=== PATIENT | female | born 1995 | race Caucasian/White ===

== ENCOUNTER 2017-03-09 12:59 | Emergency (ER) | payer OTHER ==
[2017-03-09] MEDS ORDERED: KETOROLAC 30 MG/ML 1 ML VIAL IVP STA (13:31)
[2017-03-09] MEDS ORDERED: ONDANSETRON 4 MG/2 ML VIAL IVP STA (13:31)
[2017-03-09] MEDS ORDERED: SODIUM CHLORIDE 0.9% 1,000 ML IV STA (13:31)
[2017-03-09] MEDS ORDERED: cloNIDine 0.1 MG/24HR PATCH 1 PATCH PATCH TRANSDERM STA (13:31)
--- NOTE | 2017-03-09 13:58 | ED ---
General Adult HPI - General Chief complaint: Recheck/Abnormal Lab/Rx Stated complaint: opiate withdrawal Time Seen by Provider: 03/09/17 13:23 Source: patient, RN notes reviewed Mode of arrival: ambulatory Limitations: no limitations - History of Present Illness Initial comments: 21-year-old female presents for opiate withdrawal. Patient states that she abuses heroin when but other medications for the last 2-3 weeks. Patient states she's been off these meds for about 3 days and she continues to have nausea vomiting abdominal cramping. Patient states that she just needs something to help keep something down she's not eating or drinking much last few days. Patient denies any fever or chills with this. Patient states just needs medication to help her deal with the symptoms. Patient denies any suicidal or homicidal ideation at this time. Patient denies any recent fever, chills, shortness of breath, chest pain, back pain, abdominal pain, nausea vomiting, numbness or tingling, dysuria or hematuria, constipation or diarrhea, headaches or visual changes, or any other current symptoms. - Related Data Previous Rx's Medication Instructions Recorded Ondansetron Odt [Zofran ODT] 4 mg PO Q8HR PRN #20 tab 03/09/17 Allergies Allergy/AdvReac Type Severity Reaction Status Date / Time No Known Allergies Allergy Verified 03/09/17 13:35 Review of Systems ROS Statement: Those systems with pertinent positive or pertinent negative responses have been documented in the HPI. ROS Other: All systems not noted in ROS Statement are negative. Past Medical History Past Medical History: No Reported History History of Any Multi-Drug Resistant Organisms: None Reported Past Surgical History: No Surgical Hx Reported Past Psychological History: No Psychological Hx Reported Smoking Status: Current every day smoker Past Alcohol Use History: None Reported Past Drug Use History: Heroin, Marijuana, Opiates General Exam Limitations: no limitations General appearance: alert, in no apparent distress Head exam: Present: atraumatic, normocephalic, normal inspection ENT exam: Present: normal exam, mucous membranes moist Neck exam: Present: normal inspection. Absent: tenderness, meningismus, lymphadenopathy Respiratory exam: Present: normal lung sounds bilaterally. Absent: respiratory distress, wheezes, rales, rhonchi, stridor Cardiovascular Exam: Present: normal rhythm, tachycardia, normal heart sounds GI/Abdominal exam: Present: soft, normal bowel sounds. Absent: distended, tenderness, guarding, rebound, rigid Neurological exam: Present: alert, oriented X3, CN II-XII intact. Absent: motor sensory deficit Psychiatric exam: Present: normal affect, normal mood Skin exam: Present: warm, dry, intact, normal color. Absent: rash Course Vital Signs 03/09/17 13:14 Temperature 98.1 F Pulse Rate 122 H Respiratory 20 Rate O2 Sat by Pulse 100 Oximetry Medical Decision Making - Medical Decision Making 21-year-old female presents emergency Department chief complaint of opiate withdrawal. At this time we will give the patient Zofran and clonidine patch. We did discuss follow-up return parameters. Patient is in agreement with plan and all questions have been answered. She will be discharged. Disposition Clinical Impression: Opiate withdrawal Disposition: HOME SELF-CARE Condition: Stable Instructions: Opioid Withdrawal (ED) Additional Instructions: Please use medication as discussed. Please follow up with family doctor if symptoms have not improved over the next two days. Please return to the emergency room if your symptoms increase or worsen or for any other concerns. Prescriptions: Ondansetron Odt [Zofran ODT] 4 mg PO Q8HR PRN #20 tab PRN Reason: Nausea Referrals: Tanisha José MD [STAFF PHYSICIAN] - 1-2 days Time of Disposition: 13:58
[2017-03-09 14:43] VITALS: BP 109/61; PULSE 80; RESP 16; TEMP 99.2
== END 2017-03-09 15:17 | disposition home or self-care (01) ==
LOC: EC 12:59
DX: F11.23 Opioid dependence with withdrawal (principal); R11.2 Nausea with vomiting, unspecified; R10.9 Unspecified abdominal pain; R00.0 Tachycardia, unspecified; F17.200 Nicotine dependence, unspecified, uncomplicated
CPT/HCPCS: 96374; 96375; 96361; 99283; J2405; J1885

== ENCOUNTER 2017-11-10 02:18 | Emergency (ER) | payer OTHER ==
[2017-11-10 02:25] VITALS: RESP 18
[2017-11-10] MEDS ORDERED: IBUPROFEN 600 MG TAB PO STA (02:40)
[2017-11-10] MEDS ORDERED: ACETAMINOPHEN TAB 325 MG TAB PO STA (02:40)
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
[2017-11-10 04:11] VITALS: BP 105/56; PULSE 82; TEMP 98.9
== END 2017-11-10 04:09 | disposition home or self-care (01) ==
LOC: EC 02:18
DX: S00.03XA Contusion of scalp, initial encounter (principal); F17.200 Nicotine dependence, unspecified, uncomplicated; Z86.14 Personal history of Methicillin resistant Staphylococcus aureus infection; Y04.2XXA Assault by strike against or bumped into by another person, initial encounter; Y92.009 Unspecified place in unspecified non-institutional (private) residence as the place of occurrence of the external cause
CPT/HCPCS: 70450; 71046; 81025; 99284

== ENCOUNTER 2018-01-14 17:14 | Emergency (ER) | payer OTHER ==
[2018-01-14] MEDS ORDERED: SODIUM CHLORIDE 0.9% 1,000 ML IV STA (17:51)
[2018-01-14] MEDS ORDERED: ONDANSETRON 4 MG/2 ML VIAL IVP STA (17:51)
[2018-01-14] MEDS ORDERED: diphenhydrAMINE 50 MG/ML 1 ML VIAL IVP STA (17:53)
--- NOTE | 2018-01-14 17:59 | ED ---
Recheck HPI - General Chief Complaint: Recheck/Abnormal Lab/Rx Stated Complaint: Withdrawals Time Seen by Provider: 01/14/18 17:48 Source: patient, RN notes reviewed Mode of arrival: ambulatory Limitations: no limitations - History of Present Illness Initial Comments: This is a 22-year-old female who presents to the emergency department with chief complaint of withdrawals. Patient states that she has been taking Suboxone but missed her doctor's appointment this past week so did not receive a refill. She states she has been out of Suboxone for the past 3 days. She reports fatigue, nausea and vomiting, body aches and feeling dehydrated. She denies any chest pain or shortness of breath, fevers or chills, abdominal pain, dysuria or hematuria. - Related Data Previous Rx's Medication Instructions Recorded Ondansetron Odt [Zofran Odt] 4 mg PO Q8HR PRN #15 tab 01/14/18 Allergies Allergy/AdvReac Type Severity Reaction Status Date / Time No Known Allergies Allergy Verified 01/14/18 17:41 Review of Systems ROS Statement: Those systems with pertinent positive or pertinent negative responses have been documented in the HPI. ROS Other: All systems not noted in ROS Statement are negative. 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 HEENT: Head atraumatic, normocephalic. Pupils are equal, round and reactive to light. Extraocular movements intact. Oropharynx moist without erythema or exudate. Neck: Supple. Normal ROM. Cardiovascular: Regular rate and rhythm. No murmurs, rubs or gallops. Chest symmetrical. Respiratory: Lungs clear to auscultation bilaterally. No wheezes, rales or rhonchi. Normal respiratory effort with no use of accessory muscles. Musculoskeletal: Normal ROM, no tenderness bilateral upper and lower extremities. Ambulating normally. Skin: [place], warm and dry without rashes or lesions. Neurological: Alert and oriented x3. CN II-XII grossly intact. Speech is fluent and answers are appropriate. No focal neuro deficits. Limitations: no limitations Course Vital Signs 01/14/18 17:37 Temperature 98.3 F Pulse Rate 87 Respiratory 18 Rate Blood Pressure 131/71 O2 Sat by Pulse 99 Oximetry Medical Decision Making - Medical Decision Making This is a 22-year-old female who presents to the emergency department with chief complaint of withdrawal symptoms. Patient states that she was prescribed Suboxone, however has been out of it for 3 days. She did not receive a refill because she missed her doctor's appointment. On presentation to the ER, patient 's vital signs were stable. She was given an IV normal saline, Zofran and Benadryl. She'll be discharged home with a prescription for Zofran. Recommended following up with primary care provider. She is in agreement with plan and voices understanding. All questions were answered. She is in no acute distress. Disposition Clinical Impression: Drug withdrawal Disposition: HOME SELF-CARE Condition: Good Instructions: Opioid Withdrawal (ED) Additional Instructions: Please take medications as prescribed. Please follow up with primary care provider within 1-2 days. Return to emergency department if symptoms should worsen or any concerns arise. Prescriptions: Ondansetron Odt [Zofran Odt] 4 mg PO Q8HR PRN #15 tab PRN Reason: Nausea Is patient prescribed a controlled substance at d/c from ED?: No Referrals: None,Stated [Primary Care Provider] - 1-2 days Time of Disposition: 18:45
[2018-01-14] MEDS ORDERED: ONDANSETRON 4 MG ODT STARTER PACK 2 TAB BTL PO STA (18:44)
[2018-01-14 19:22] VITALS: BP 124/77; PULSE 65; RESP 15; TEMP 99.5
== END 2018-01-14 20:03 | disposition home or self-care (01) ==
LOC: EC 17:14
DX: F11.23 Opioid dependence with withdrawal (principal); R11.2 Nausea with vomiting, unspecified; R53.83 Other fatigue; R52 Pain, unspecified; T40.2X5A Adverse effect of other opioids, initial encounter; F17.200 Nicotine dependence, unspecified, uncomplicated; Z86.14 Personal history of Methicillin resistant Staphylococcus aureus infection
CPT/HCPCS: 99284; 96374; 96375; 96361; J1200; J2405; S0119

== ENCOUNTER → 2019-03-02 | Outpatient (CLI) | payer OTHER | END | disposition home or self-care (01) | LOC: LABWHC1 07:21 | PROVIDERS: ATTEND Internal Medicine | DX: Z53.9 Procedure and treatment not carried out, unspecified reason (principal) ==

== ENCOUNTER → 2019-03-02 | Outpatient (CLI) | payer OTHER ==
[2019-03-02 07:49] LABS: Basophils # (A) 0.1 k/uL (0-0.2); Basophils % (A) 1 %; Eosinophils # (A) 0.2 k/uL (0-0.7); Eosinophils % (A) 3 %; HCT 37.4 % (34.0-46.0); HGB 11.7 gm/dL (11.4-16.0); Hypochromasia Marked; Lymphocytes # (A) 1.7 k/uL (1.0-4.8); Lymphocytes % (A) 25 %; MCH 23.3 pg (25.0-35.0); MCHC 31.4 g/dL (31.0-37.0); MCV 74.3 fL (80.0-100.0); Mean Platelet Volume 6.6; Microcytosis Slight; Monocytes # (A) 0.4 k/uL (0-1.0); Monocytes % (A) 5 %; Neutrophils # (A) 4.5 k/uL (1.3-7.7); Neutrophils % (A) 65 %; Platelet Count 232 k/uL (150-450); RBC 5.03 m/uL (3.80-5.40); WBC 6.9 k/uL (3.8-10.6)
[2019-03-02 08:05] LABS: ALT 17 U/L (9-52); AST 17 U/L (14-36); African American GFR (CKD) >90 (>60 ml/min/1.73 sqM); Alkaline Phosphatase 68 U/L (38-126); Anion Gap 7 mmol/L; Bilirubin, Delta 0.1 mg/dL (0.0-0.2); Bilirubin,Unconjugated 0.1 mg/dL (0.0-1.1); Blood Urea Nitrogen 16 mg/dL (7-17); Calcium 9.7 mg/dL (8.4-10.2); Carbon Dioxide 27 mmol/L (22-30); Chloride 104 mmol/L (98-107); Glucose 91 mg/dL (74-99); Non-African American GFR(CKD) >90 (>60 ml/min/1.73 sqM); Potassium 4.3 mmol/L (3.5-5.1); Sodium 138 mmol/L (137-145); Total Bilirubin 0.2 mg/dL (0.2-1.3); Total Protein 6.7 g/dL (6.3-8.2)
[2019-03-02 08:11] LABS: INR 0.9 (<1.2); Prothrombin Time 9.4 sec (9.0-12.0)
--- NOTE | 2019-03-02 09:03 | US ---
EXAMINATION TYPE: US liver DATE OF EXAM: 03/02/2019 COMPARISON: CT 05/31/2017 CLINICAL HISTORY: 23-year-old female B19.20 VIRAL HEP C WITHOUT HEPATIC COMA. TECHNIQUE: Multiple sonographic images of the right upper quadrant are obtained. FINDINGS: EXAM MEASUREMENTS: Liver Length: 16.1 cm Gallbladder Wall: 0.2 cm CBD: 0.6 cm Right Kidney: 12.0 x 3.4 x 3.6 cm Pancreas: Only a small portion of the pancreatic neck and body are visualized. Remainder is obscured by bowel gas shadowing. Liver: Slightly echogenic. No focal lesion is seen. Gallbladder: wnl Evidence for sonographic Aguayo's sign: No CBD: Borderline in diameter. Right Kidney: Malrotated kidney. No hydronephrosis. IMPRESSION: 1. Slightly echogenic liver could reflect mild fatty infiltration or other nonspecific hepatocellular disease. No focal liver lesion. 2. Common bile duct diameter is borderline distended. This may be normal for the patient. Correlation with alkaline phosphatase and bilirubin levels to exclude early biliary obstruction. 3. Malrotated right kidney. No cholelithiasis.
[2019-03-03 14:11] LABS: HCV Qualitative Result Not detected (Not detected); HCV Quant Log <1.08 (<1.08); HCV Quantitative Result <12 IU/mL (<12)
== END | disposition home or self-care (01) ==
LOC: RADUSWWP 07:02
PROVIDERS: ATTEND Internal Medicine
DX: R93.2 Abnormal findings on diagnostic imaging of liver and biliary tract (principal); Q63.2 Ectopic kidney; B19.20 Unspecified viral hepatitis C without hepatic coma
CPT/HCPCS: 76705; 80053; 82248; 85025; 85610; 87522

== ENCOUNTER 2020-11-29 17:34 | Emergency (ER) | payer OTHER ==
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
[2020-11-29 18:59] LABS: Amorphous Sediment,Urine Few /hpf; Appearance,Urine Turbid (Clear); Bilirubin,Urine Negative (Negative); Blood,Urine Negative (Negative); Color,Urine Yellow; Glucose,Urine (UA) Negative (Negative); Ketones,Urine Negative (Negative); Leukocyte Esterase,Urine Negative (Negative); Nitrite,Urine Negative (Negative); Protein,Urine Negative (Negative); Specific Gravity,Urine 1.013 (1.001-1.035); Squamous Epithelial Cell,Urine 2 /hpf (0-4); Urobilinogen,Urine <2.0 mg/dL (<2.0); WBC,Urine 3 /hpf (0-5)
[2020-11-29 19:00] LABS: Amphetamine Screen,Urine Detected (NotDetected); Barbiturate Screen,Urine Not Detected (NotDetected); Benzodiazepines Screen,Urine Not Detected (NotDetected); Cocaine Screen,Urine Not Detected (NotDetected); Methadone Screen, Urine Not Detected (NotDetected); Opiate Screen,Urine Detected (NotDetected); Oxycodone Screen, Urine Not Detected (NotDetected); Phencyclidine Screen,Urine Not Detected (NotDetected); Tricyclic Antidepressant,Urine Not Detected (NotDetected); Urn Cannabinoid Scrn Detected (NotDetected)
[2020-11-29 19:19] VITALS: BP 118/79; PULSE 108; RESP 20; TEMP 98.1
== END 2020-11-29 19:15 | disposition home or self-care (01) ==
LOC: EC 17:34
DX: Z11.59 Encounter for screening for other viral diseases (principal); R51.9 Headache, unspecified; Z20.822 Contact with and (suspected) exposure to COVID-19; F17.200 Nicotine dependence, unspecified, uncomplicated; J45.909 Unspecified asthma, uncomplicated; F41.9 Anxiety disorder, unspecified
CPT/HCPCS: 80306; 81001; 81025; 87635; 99284

== ENCOUNTER 2020-12-26 21:14 | Emergency (ER) | payer OTHER ==
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
[2020-12-26 22:05] VITALS: BP 133/73; PULSE 78; RESP 18; TEMP 98.3
== END 2020-12-26 22:05 | disposition home or self-care (01) ==
LOC: EC 21:14
DX: L03.115 Cellulitis of right lower limb (principal); B86 Scabies; J45.909 Unspecified asthma, uncomplicated; F41.9 Anxiety disorder, unspecified; F12.90 Cannabis use, unspecified, uncomplicated; F11.90 Opioid use, unspecified, uncomplicated; F14.90 Cocaine use, unspecified, uncomplicated; F17.290 Nicotine dependence, other tobacco product, uncomplicated
CPT/HCPCS: 99283

== ENCOUNTER 2021-08-21 13:50 | Inpatient (IN) | payer MEDICAID, OTHER ==
--- NOTE | 2021-08-21 16:03 | ED ---
General Adult HPI - General Chief complaint: Overdose Stated complaint: Overdose Time Seen by Provider: 08/21/21 13:52 Source: patient, RN notes reviewed Mode of arrival: ambulatory Limitations: no limitations - History of Present Illness Initial comments: This a 26-year-old female presents emergency department via EMS after opiate overdose. Patient was found down after using fentanyl she does admit to snorting this. She states that she abuses opiates and methamphetamines. Patient was given 2 mg of Narcan IM immediately awoke patient reportedly has been having some very bizarre behavior, hallucinations per family who petition the patient for psychiatric treatment. Patient has no physical complaints currently. Denies any: 19 symptoms. - Related Data Previous Rx's Medication Instructions Recorded Ondansetron Odt [Zofran Odt] 4 mg PO Q8HR PRN #15 tab 01/14/18 Cephalexin [Keflex] 500 mg PO QID #40 cap 12/26/20 Permethrin 5% Cream [Elimite] 1 applic TOPICAL ONCE #30 cream..g. 12/26/20 Allergies Allergy/AdvReac Type Severity Reaction Status Date / Time No Known Allergies Allergy Verified 12/26/20 21:30 Review of Systems ROS Statement: Those systems with pertinent positive or pertinent negative responses have been documented in the HPI. ROS Other: All systems not noted in ROS Statement are negative. 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 Absent: scleral icterus, conjunctival injection, periorbital swelling Neck exam: Present: normal inspection. Absent: tenderness, meningismus, lymphadenopathy Respiratory exam: Present: normal lung sounds bilaterally. Absent: respiratory distress, wheezes, rales, rhonchi, stridor Cardiovascular Exam: Present: regular rate, normal rhythm, normal heart sounds. Absent: systolic murmur, diastolic murmur, rubs, gallop, clicks Psychiatric exam: Present: anxious, flat affect Skin exam: Present: warm, dry, intact, normal color. 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 Disposition Clinical Impression: Opiate overdose, Depression, Methamphetamine use Disposition: TRANSFER TO PSYCH HOSP/UNIT Referrals: Ambika Mansfield MD [Primary Care Provider] - 1-2 days Time of Disposition: 16:03
[2021-08-21] MEDS ORDERED: MAG HYDROX/AL HYDROX/SIMETH 30 ML CUP PO PRN (17:27)
[2021-08-21] MEDS ORDERED: MAGNESIUM HYDROXIDE 2,400 MG/10 ML CUP PO PRN (17:27)
[2021-08-21] MEDS ORDERED: LORazepam 1 MG TAB PO PRN (17:27)
[2021-08-21] MEDS ORDERED: ACETAMINOPHEN TAB 325 MG TAB PO PRN (17:27)
[2021-08-21] MEDS ORDERED: LORazepam 2 MG/ML INJ IM PRN (17:30)
[2021-08-21] MEDS ORDERED: HALOPERIDOL LACTATE 5 MG/ML 1 ML VIAL IM PRN (17:31)
[2021-08-21] MEDS ORDERED: haloperidoL 5 MG TAB PO PRN (17:31)
[2021-08-21 17:36] VITALS: TEMP 98.2
[2021-08-21 18:16] LABS: Amphetamine Screen,Urine Detected (NotDetected); Barbiturate Screen,Urine Not Detected (NotDetected); Benzodiazepines Screen,Urine Not Detected (NotDetected); Cocaine Screen,Urine Not Detected (NotDetected); Methadone Screen, Urine Not Detected (NotDetected); Opiate Screen,Urine Not Detected (NotDetected); Oxycodone Screen, Urine Not Detected (NotDetected); Phencyclidine Screen,Urine Not Detected (NotDetected); Tricyclic Antidepressant,Urine Not Detected (NotDetected); Urn Cannabinoid Scrn Detected (NotDetected)
[2021-08-21 19:21] VITALS: BP 114/72; PULSE 89
[2021-08-22] MEDS: NICOTINE 14MG/24HR PATCH TRANSDERM SCH (08:42)
[2021-08-22 10:01] VITALS: BMI 22.3
[2021-08-22 10:17] LABS: Basophils % (A) 0 %; Eosinophils # (A) 0.1 k/uL (0-0.7); Eosinophils % (A) 3 %; HCT 40.7 % (34.0-46.0); HGB 13.4 gm/dL (11.4-16.0); Lymphocytes # (A) 2.8 k/uL (1.0-4.8); Lymphocytes % (A) 54 %; MCH 25.3 pg (25.0-35.0); MCV 76.7 fL (80.0-100.0); Mean Platelet Volume 6.6; Monocytes # (A) 0.2 k/uL (0-1.0); Monocytes % (A) 3 %; Neutrophils # (A) 1.9 k/uL (1.3-7.7); Neutrophils % (A) 37 %; Platelet Count 213 k/uL (150-450); Poikilocytosis Slight; RBC 5.31 m/uL (3.80-5.40); RDW 14.1 % (11.5-15.5); WBC 5.2 k/uL (3.8-10.6)
[2021-08-22 10:30] LABS: ALT 29 U/L (4-34); AST 37 U/L (14-36); African American GFR (CKD) >90 (>60 ml/min/1.73 sqM); Albumin 3.9 g/dL (3.5-5.0); Alkaline Phosphatase 101 U/L (38-126); Anion Gap 10 mmol/L; Blood Urea Nitrogen 9 mg/dL (7-17); Calcium 9.4 mg/dL (8.4-10.2); Carbon Dioxide 27 mmol/L (22-30); Chloride 100 mmol/L (98-107); Glucose 99 mg/dL (74-99); Non-African American GFR(CKD) >90 (>60 ml/min/1.73 sqM); Potassium 3.3 mmol/L (3.5-5.1); Sodium 137 mmol/L (137-145); Total Bilirubin 0.3 mg/dL (0.2-1.3); Total Protein 7.1 g/dL (6.3-8.2)
--- NOTE | 2021-08-22 11:37 | P.HP ---
Psychiatric H&P - . H&P Date: 08/22/21 History & Physical: Allergies Allergy/AdvReac Type Severity Reaction Status Date / Time No Known Allergies Allergy Verified 08/21/21 16:40 Vital Signs Temp 98.2 F 08/21/21 17:35 Pulse 98 08/21/21 17:35 Resp 20 08/21/21 17:35 BP 112/70 08/21/21 17:35 Pulse Ox 97 08/21/21 17:35 Intake & Output 08/21/21 08/22/21 08/22/21 18:59 06:59 18:59 Weight 58.967 kg 58.967 kg Laboratory Last Values WBC 5.2 k/uL (3.8-10.6) 08/22/21 09:52 RBC 5.31 m/uL (3.80-5.40) 08/22/21 09:52 Hgb 13.4 gm/dL (11.4-16.0) 08/22/21 09:52 Hct 40.7 % (34.0-46.0) 08/22/21 09:52 MCV 76.7 fL (80.0-100.0) L 08/22/21 09:52 MCH 25.3 pg (25.0-35.0) 08/22/21 09:52 MCHC 33.0 g/dL (31.0-37.0) 08/22/21 09:52 RDW 14.1 % (11.5-15.5) 08/22/21 09:52 Plt Count 213 k/uL (150-450) 08/22/21 09:52 MPV 6.6 08/22/21 09:52 Neutrophils % 37 % 08/22/21 09:52 Lymphocytes % 54 % 08/22/21 09:52 Monocytes % 3 % 08/22/21 09:52 Eosinophils % 3 % 08/22/21 09:52 Basophils % 0 % 08/22/21 09:52 Neutrophils # 1.9 k/uL (1.3-7.7) 08/22/21 09:52 Lymphocytes # 2.8 k/uL (1.0-4.8) 08/22/21 09:52 Monocytes # 0.2 k/uL (0-1.0) 08/22/21 09:52 Eosinophils # 0.1 k/uL (0-0.7) 08/22/21 09:52 Basophils # 0.0 k/uL (0-0.2) 08/22/21 09:52 Poikilocytosis Slight 08/22/21 09:52 Sodium 137 mmol/L (137-145) 08/22/21 09:52 Potassium 3.3 mmol/L (3.5-5.1) L 08/22/21 09:52 Chloride 100 mmol/L (98-107) 08/22/21 09:52 Carbon Dioxide 27 mmol/L (22-30) 08/22/21 09:52 Anion Gap 10 mmol/L 08/22/21 09:52 BUN 9 mg/dL (7-17) 08/22/21 09:52 Creatinine 0.53 mg/dL (0.52-1.04) 08/22/21 09:52 Est GFR (CKD-EPI)AfAm >90 (>60 ml/min/1.73 sqM) 08/22/21 09:52 Est GFR (CKD-EPI)NonAf >90 (>60 ml/min/1.73 sqM) 08/22/21 09:52 Glucose 99 mg/dL (74-99) 08/22/21 09:52 Calcium 9.4 mg/dL (8.4-10.2) 08/22/21 09:52 Total Bilirubin 0.3 mg/dL (0.2-1.3) 08/22/21 09:52 AST 37 U/L (14-36) H 08/22/21 09:52 ALT 29 U/L (4-34) 08/22/21 09:52 Alkaline Phosphatase 101 U/L (38-126) 08/22/21 09:52 Total Protein 7.1 g/dL (6.3-8.2) 08/22/21 09:52 Albumin 3.9 g/dL (3.5-5.0) 08/22/21 09:52 TSH 0.993 mIU/L (0.465-4.680) 08/22/21 09:52 Urine HCG, Qual Not Detected (Not Detectd) 08/21/21 16:07 Urine Opiates Screen Not Detected (NotDetected) 08/21/21 16:07 Ur Oxycodone Screen Not Detected (NotDetected) 08/21/21 16:07 Urine Methadone Screen Not Detected (NotDetected) 08/21/21 16:07 Ur Propoxyphene Screen Not Detected (NotDetected) 08/21/21 16:07 Ur Barbiturates Screen Not Detected (NotDetected) 08/21/21 16:07 U Tricyclic Antidepress Not Detected (NotDetected) 08/21/21 16:07 Ur Phencyclidine Scrn Not Detected (NotDetected) 08/21/21 16:07 Ur Amphetamines Screen Detected (NotDetected) H 08/21/21 16:07 U Methamphetamines Scrn Detected (NotDetected) H 08/21/21 16:07 U Benzodiazepines Scrn Not Detected (NotDetected) 08/21/21 16:07 Urine Cocaine Screen Not Detected (NotDetected) 08/21/21 16:07 U Marijuana (THC) Screen Detected (NotDetected) H 08/21/21 16:07 Coronavirus (PCR) Not Detected (Not Detectd) 08/21/21 16:07 08/22/21 11:30 Psychiatric evaluation: History of present illness this is a 26-year-old female who was brought to the ER by the EMS after an opiate overdose The patient was found down after using fentanyl which she had admitted to snorting Patient had admitted that she also abuses opiates and methamphetamines Patient seemed to wake up immediately after 2 mg of Narcan I am The family has also reported some very bizarre behavior including hallucinations and has petitioned by the family members. When I have tried to assess as the patient today the patient refused to get up Patient covered her head under the blanket and did not respond to any verbal requests The patient could not be further interpreted this time Past history personal and social history could not be collected at this time due to above-mentioned reasons The chart has a note from the ER which has a documentation of history of ovarian cyst and histoplasmosis in the lungs Patient has a history of heroin addiction and is trying to stop it by using Suboxone Past history is significant for cocaine heroine and marijuana opiates and prescription drug use Mental status examination: Could not be completed at this time due to level reasons patient is uncooperative and is unwilling to participate in the examination by covering her head under the covers It is also likely that the patient is possibly going through significant fatigue post drug usage An attempt will be made to reassess the patient later or tomorrow morning Diagnostic impression: Depressive disorder unspecified by history Opiate use disorder unspecified Methamphetamine use disorder unspecified Plan: The patient will be hospitalized on the unit for further evaluation and treatment. Therapy would be focused on providing supportive care improving her coping abilities with the monitor while to treatment patient will also participate in all door activities individual milieu group OT R T PT and pharmacotherapy Approximately length of stay would be 3-7 days Monitor for withdrawal symptoms, depression and maintain safety precautions Ava Nelson MD 08/22/2021
[2021-08-22 19:48] LABS: Chol/HDL Ratio 2.87 Ratio; LDL Cholesterol,Calculated 69.5 mg/dL (0.0-131.0)
--- NOTE | 2021-08-22 23:40 | P.CONS ---
History of Present Illness - History of Present Illness This is a pleasant 26 years old female with past medical history of Asthma, G ERD, hypothyroidism, ovarian cyst, heroin addiction, nicotine dependence and anxiety Presents for drug overdose after she slipped fentanyl she became unresponsive and she was brought to the emergency room which responded and woken up after she received 2 mg of Narcan into the vein. And now she's awake alert and oriented 3 although she is lethargic and less interactive with slow voice and talks in a few words. She is complaining only for mild headache but no weakness or numbness and she can move all limbs symmetrically. She denies chest pain or abdominal pain nausea vomiting or diarrhea. Effort to do test but she declines. She is hemodynamically stable. She denies smoking or alcohol. Vital stable except for mild tachycardia from stress and 100. Labs including CBC, BMP, liver enzymes are unremarkable. Urine test is negative. Urine drug screen is positive for methamphetamine, amphetamine and marijuana. Cardiovascular detected. Review of Systems Review of systems CONSTITUTIONAL: No fever, no malaise, no fatigue. HEENT: No recent visual problems or hearing problems. Denied any sore throat. CARDIOVASCULAR: No orthopnea, PND, no palpitations, no syncope. PULMONARY: No shortness of breath, no cough, no hemoptysis. GASTROINTESTINAL: No diarrhea, no nausea, no vomiting, no abdominal pain. Normoactive bowel sounds. NEUROLOGICAL: no weakness, no numbness. HEMATOLOGICAL: Denies any bleeding or petechiae. GENITOURINARY: Denies any burning micturition, frequency, or urgency. MUSCULOSKELETAL/RHEUMATOLOGICAL: Denies any joint pain, swelling, or any muscle pain. ENDOCRINE: Denies any polyuria or polydipsia. 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 History of Any Multi-Drug Resistant Organisms: MRSA Year Discovered:: none MDRO Source:: none Past Surgical History: No Surgical Hx Reported Additional Past Surgical History / Comment(s): none reported Past Psychological History: Anxiety Smoking Status: Current every day smoker, Vaper Past Alcohol Use History: None Reported Past Drug Use History: Cocaine, Heroin, Marijuana, Opiates, Prescription Drug Abuse Medications and Allergies Home Medications Medication Instructions Recorded Confirmed Type No Known Home Medications 08/21/21 08/21/21 History Allergies Allergy/AdvReac Type Severity Reaction Status Date / Time No Known Allergies Allergy Verified 08/21/21 16:40 Physical Exam Vitals: Vital Signs Temp Pulse Pulse Resp BP BP Pulse Ox 08/21/21 17:35 98.2 F 98 20 112/70 97 08/21/21 17:26 98.1 F 89 95 H 114/72 Intake and Output 08/21/21 08/22/21 08/22/21 22:59 06:59 14:59 Other: Weight 58.967 kg 58.967 kg GENERAL: The patient is alert and oriented x3, not in any acute distress. Well developed, well nourished. HEENT: Pupils are round and equally reacting to light. EOMI. No scleral icterus. No conjunctival pallor. Normocephalic, atraumatic. No pharyngeal erythema. No thyromegaly. CARDIOVASCULAR: S1 and S2 present. No murmurs, rubs, or gallops. PULMONARY: Chest is clear to auscultation, no wheezing or crackles. ABDOMEN: Soft, nontender, nondistended, normoactive bowel sounds. No palpable organomegaly. MUSCULOSKELETAL: No joint swelling or deformity. EXTREMITIES: No cyanosis, clubbing, or pedal edema. NEUROLOGICAL: Gross neurological examination did not reveal any focal deficits. SKIN: No rashes. no petechiae. Results CBC & Chem 7: 08/22/21 09:52 08/22/21 09:52 Labs: Abnormal Lab Results - Last 24 Hours (Table) 08/21/21 08/22/21 08/22/21 Range/Units 16:07 09:52 09:52 MCV 76.7 L (80.0-100.0) fL Potassium 3.3 L (3.5-5.1) mmol/L AST 37 H (14-36) U/L Ur Amphetamines Screen Detected H (NotDetected) U Methamphetamines Scrn Detected H (NotDetected) U Marijuana (THC) Screen Detected H (NotDetected) Assessment and Plan Assessment: -Substance abuse with fentanyl, heroine and methamphetamine, management as per primary psych team -History of GERD -History of asthma, not in active tissue -Nicotine dependence, patient was counseled. We offered nicotine patch but she declines DVT prophylaxis, patient is mobile GI prophylaxis: Not needed Recommend patient follow up with her PCP in one week after discharge and she was instructed with the same and she agrees Thank you for consulting us, we will follow up with the patient on as needed basis.
[2021-08-23] MEDS: NICOTINE 14MG/24HR PATCH TRANSDERM SCH (08:15)
--- NOTE | 2021-08-23 13:18 | P.PN ---
Subjective Progress Note Date: 08/23/21 Principal diagnosis: Mood disorder most likely substance related Adjustment disorder with depressed mood Methamphetamine use disorder unspecified Alcohol use disorder unspecified Subjective data: I live with some friends and sometimes I work under the table for [employer] I have finished high school I've been using methamphetamine and alcohol and cannabis It does seem to run in my family or my father also is addicted I also use heroine on a regular basis I did use Suboxone at one time for about a month and that that was helpful I have had some depression in the past for about 2-3 months but never had any treatment I sometimes hear voices usually after I used methamphetamine I'm not having any suicidal or homicidal thoughts Objective data: Patient remains very vague and superficial She also appears very fatigued Patient had much difficulty to cooperate and was able to respond after she was asked to come to the exam room for assessment Affect remains flat Discusses very brief and superficial with mostly monosyllabic answers Thought processes are goal-directed sequential and logical There is no signs of any overt psychosis Patient's formal and operational judgment appears to be fair Patient does seem to have limited insight into her problem Diagnostic impression: Adjustment disorder with depressed mood Mood disorder substance related most likely Methamphetamine use disorder unspecified Heroine use disorder unspecified Alcohol use disorder unspecified Cannabis use disorder unspecified Plan the patient at this time is going through post drug use, fatigue and a motivation and remains rather limited in interaction and motivation Patient will be continued to be encouraged to participate in on the flood activities individual milieu and other activities No pharmacotherapy isn't indicated at this time Continue supportive care Az Omar Foster 08/23/21 Objective - Vital Signs Vital signs: Vital Signs Temp 98.2 F 08/21/21 17:35 Pulse 98 08/21/21 17:35 Resp 20 08/21/21 17:35 BP 112/70 08/21/21 17:35 Pulse Ox 97 08/21/21 17:35 Intake & Output 08/22/21 08/23/21 08/23/21 18:59 06:59 18:59 Weight 58.967 kg 59.7 kg - Labs CBC & Chem 7: 08/22/21 09:52 08/22/21 09:52
[2021-08-23 13:33] LABS: Glucose,Whole Blood 247 mg/dL (75-99)
[2021-08-23] MEDS ORDERED: NALOXONE 0.4 MG/ML 1 ML VIAL ONE (13:35)
[2021-08-23] MEDS ORDERED: NALOXONE 0.4 MG/ML 1 ML VIAL IVP STA (14:16)
[2021-08-23] MEDS ORDERED: NALOXONE 0.4 MG/ML 1 ML VIAL IVP PRN (14:26)
[2021-08-23 15:10] VITALS: RESP 6
== END 2021-08-23 14:40 | DRG 918 ==
LOC: EC 13:50 → 3MHU 17:01
PROVIDERS: ADMIT Psychiatry & Neurology Psychiatry; ATTEND Psychiatry & Neurology Psychiatry
DX: T40.411A Poisoning by fentanyl or fentanyl analogs, accidental (unintentional), initial encounter (principal); F14.10 Cocaine abuse, uncomplicated; F12.10 Cannabis abuse, uncomplicated; F11.10 Opioid abuse, uncomplicated; R00.0 Tachycardia, unspecified; F10.10 Alcohol abuse, uncomplicated; E03.9 Hypothyroidism, unspecified; R53.83 Other fatigue; F17.290 Nicotine dependence, other tobacco product, uncomplicated; F15.10 Other stimulant abuse, uncomplicated; F43.21 Adjustment disorder with depressed mood; J45.909 Unspecified asthma, uncomplicated; K21.9 Gastro-esophageal reflux disease without esophagitis; Z20.822 Contact with and (suspected) exposure to COVID-19; Z86.14 Personal history of Methicillin resistant Staphylococcus aureus infection; Z79.890 Hormone replacement therapy; Z71.6 Tobacco abuse counseling
CPT/HCPCS: 80053; 80061; 80306; 81025; 82075; 83036; 84443; 85025; 87635; 99285

== ENCOUNTER 2021-08-23 14:00 | Inpatient (IN) | payer MEDICAID, OTHER ==
[2021-08-23] MEDS ORDERED: ACETAMINOPHEN TAB 325 MG TAB PO PRN ×2 (15:45→22:19)
[2021-08-23] MEDS ORDERED: LORazepam 2 MG/ML INJ IV PRN (15:46)
[2021-08-23] MEDS ORDERED: diphenhydrAMINE 50 MG/ML 1 ML VIAL IVP PRN (15:49)
[2021-08-23] MEDS: haloperidoL 5 MG TAB PO SCH ×2 (16:33→20:56)
[2021-08-23] MEDS: NALOXONE 0.4 MG/ML 1 ML VIAL IVP PRN ×4 (16:40→22:27)
[2021-08-23] MEDS: DEXTROSE 5%-0.9% NACL 1,000 ML IV SCH (16:40)
[2021-08-23 17:32] LABS: Basophils % (A) 1 %; Eosinophils % (A) 1 %; HCT 40.1 % (34.0-46.0); HGB 13.1 gm/dL (11.4-16.0); Lymphocytes # (A) 1.7 k/uL (1.0-4.8); Lymphocytes % (A) 33 %; MCH 25.4 pg (25.0-35.0); MCHC 32.6 g/dL (31.0-37.0); MCV 77.9 fL (80.0-100.0); Mean Platelet Volume 6.3; Monocytes # (A) 0.1 k/uL (0-1.0); Monocytes % (A) 3 %; Neutrophils # (A) 3.1 k/uL (1.3-7.7); Neutrophils % (A) 61 %; Platelet Count 214 k/uL (150-450); Poikilocytosis Slight; RBC 5.15 m/uL (3.80-5.40); RDW 14.4 % (11.5-15.5)
[2021-08-23 17:41] LABS: HCG,Qualitative Serum Not Detected
[2021-08-23 17:44] LABS: ALT 25 U/L (4-34); AST 32 U/L (14-36); African American GFR (CKD) >90 (>60 ml/min/1.73 sqM); Albumin 3.5 g/dL (3.5-5.0); Albumin/Globulin Ratio 1.1; Alkaline Phosphatase 92 U/L (38-126); Anion Gap 6 mmol/L; Bilirubin,Unconjugated 0.1 mg/dL (0.0-1.1); Blood Urea Nitrogen 10 mg/dL (7-17); Calcium 9.3 mg/dL (8.4-10.2); Carbon Dioxide 32 mmol/L (22-30); Chloride 99 mmol/L (98-107); Creatine Kinase 24 U/L (30-135); Globulin 3.1 g/dL; Glucose 110 mg/dL (74-99); Magnesium 2.2 mg/dL (1.6-2.3); Non-African American GFR(CKD) >90 (>60 ml/min/1.73 sqM); Potassium 3.3 mmol/L (3.5-5.1); Sodium 137 mmol/L (137-145); Total Bilirubin 0.3 mg/dL (0.2-1.3); Total Protein 6.6 g/dL (6.3-8.2)
[2021-08-23] MEDS ORDERED: Potassium Replacement Protocol 1 EACH MISC MISCELLANE PRN (18:22)
[2021-08-23] MEDS ORDERED: FAMOTIDINE 20 MG/2 ML VIAL IV SCH (21:00)
--- NOTE | 2021-08-23 21:20 | CT ---
EXAMINATION TYPE: CT brain wo con DATE OF EXAM: 08/23/2021 COMPARISON: 11/10/2017 HISTORY: Altered mental status. CT DLP: 1078.4 mGycm Automated exposure control for dose reduction was used. Ventricles have normal size. There is no mass effect nor midline shift. There is no sign of intracran ial hemorrhage. Calvarium is intact. IMPRESSION: Negative unenhanced head CT scan. No change.
[2021-08-23] MEDS: HEPARIN SODIUM,PORCINE/PF 5,000 UNIT/0.5 ML SYRINGE SQ SCH (21:23)
[2021-08-23] MEDS: POTASSIUM CHLORIDE 10 MEQ in WATER FOR INJECTION 1 100ML.BAG IVPB SCH ×2 (22:29→23:31)
[2021-08-23] MEDS: POTASSIUM CHLORIDE ER 20 MEQ TAB.ER PO SCH (23:48)
[2021-08-24] MEDS: POTASSIUM CHLORIDE ER 20 MEQ TAB.ER PO SCH (01:04)
[2021-08-24] MEDS ORDERED: FAMOTIDINE 20 MG TAB PO SCH (03:29)
[2021-08-24] MEDS: DEXTROSE 5%-0.9% NACL 1,000 ML IV SCH ×2 (06:13→19:57)
[2021-08-24] MEDS: HEPARIN SODIUM,PORCINE/PF 5,000 UNIT/0.5 ML SYRINGE SQ SCH ×2 (08:07→19:57)
[2021-08-24] MEDS: NICOTINE 14MG/24HR PATCH TRANSDERM SCH (08:07)
[2021-08-24] MEDS: FAMOTIDINE 20 MG TAB PO SCH ×2 (08:07→22:29)
--- NOTE | 2021-08-24 09:40 | P.CNNES ---
History of Present Illness Consult date: 08/24/21 Requesting physician: Rhys E Sheet Reason for Consult: peroids of confusion History of Present Illness: This is a 26-year-old woman with medical history of of recent ED visit of opioids overdose on 08/21/2021, methamphetamine use, depression who was recently admitted to the psychiatry inpatient unit because of her opiate use who had to be then admitted to the medical floor because of her periods of confusion for further evaluation. History was obtained from medical record and patient's nurse. Per the ED note on 08/21/2021 it seems that the patient had an opiate overdose and was found using fentanyl and that she admitted to the ED that that she was snorting that. She abuses opiates as well as amphetamine at. Patient was given 2 mg of Narcan and immediately responded to it. Per the ED note the patient has been having the desire behavior and hallucination according to the family. Per the nurse, she stated when the patient was in the psych inpatient floor she received fentanyl from one of patient's in psych floor and result she became unresponsive and was given Narcan. Per the nurse she she sitting up appropriately and taking appropriately but refusing medical management. Per patient she feels she is doing better and denies of history of stroke, TIA or seizures in the past. She denies of headaches. She asked me if she can be left alone. She denies of alcohol use. She stated she socially smokes tobacco (1 cigarette a day). Patient feels she is doing better and does not want to go over any review of system or provide more history. She stated she has be using Fentanyl and Methamphetamine for past one year. She had a recent CT of the head on 08/23/2021 and she reported as negative on has had computed tomography scan. No change. Her most recent vital signs is a blood pressure of 94/50, heart rate of 73, respiratory of 12, image of 98.5 the Fahrenheit oral and pulse ox of 97% on 2 L of nasal cannula. Her CBC with differential is MCV 77.9 otherwise the rest are unremarkable. Sodium is 137, potassium 3.3, creatinine is up 146, serum glucose is 110, calcium is 9.3, magnesium 2.2, AST of 32 and ALT of 25. TSH is up 0.193 which is low but the free T4 is 1.41 which is considered normal HCG qualitative as nondetected I personally attempted to review the patient CT of the head bottom having difficulty since there is a problem with the system. Review of Systems Review of system: Is limited because of her cooperation but the pertinent positive and negative as per HPI. 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 History of Any Multi-Drug Resistant Organisms: MRSA Date of last positivie culture/infection: none MDRO Source:: none Past Surgical History: No Surgical Hx Reported Additional Past Surgical History / Comment(s): none reported Past Anesthesia/Blood Transfusion Reactions: No Reported Reaction Past Psychological History: Anxiety Smoking Status: Current some day smoker, Vaper Past Alcohol Use History: None Reported Past Drug Use History: Cocaine, Heroin, Marijuana, Opiates, Prescription Drug Abuse - Past Family History Father Family Medical History: No Reported History Medications and Allergies Home Medications Medication Instructions Recorded Confirmed Type Acetaminophen Tab [Tylenol] 650 mg PO Q4HR PRN tab 08/24/21 Rx Famotidine [Pepcid] 20 mg PO BID tab 08/24/21 Rx LORazepam [Ativan] 1 mg PO TID PRN tab 08/24/21 Rx Naloxone HCl [Narcan] 4 mg NASAL ONCE PRN #1 each 08/24/21 Rx Nicotine 14Mg/24Hr Patch [Habitrol] 1 patch TRANSDERM DAILY patch 08/24/21 Rx haloperidoL [Haldol] 5 mg PO TID tab 08/24/21 Rx Allergies Allergy/AdvReac Type Severity Reaction Status Date / Time No Known Allergies Allergy Verified 08/21/21 16:40 Physical Examination - Vital Signs Vital Signs: Vital Signs Temp Pulse Resp BP Pulse Ox 08/24/21 07:21 98.5 F 73 12 94/50 97 08/24/21 06:14 12 97 08/24/21 05:00 11 L 08/24/21 04:00 11 L 08/24/21 03:24 12 97 08/24/21 01:26 98.6 F 96 12 93/50 98 08/24/21 01:06 12 97 08/24/21 00:00 12 08/23/21 22:35 15 08/23/21 22:27 10 L 08/23/21 22:25 9 L 08/23/21 20:45 7 L 08/23/21 20:00 98.1 F 88 10 L 100/59 97 08/23/21 19:12 16 97 08/23/21 19:07 10 L 97 08/23/21 17:19 97 08/23/21 17:12 73 14 08/23/21 16:40 14 08/23/21 15:42 97 08/23/21 14:05 98.3 F 73 14 100/62 Intake and Output 08/23/21 08/24/21 08/24/21 22:59 06:59 14:59 Intake Total 550 800 Balance 550 800 Intake: Intake, IV Titration 150 Amount Dextrose 5%-0.9% NaCl 1, 150 000 ml @ 75 mls/hr IV . [id number] SRIKANTH Rx#:[id number] Oral 400 800 Other: Voiding Method Toilet # Voids 1 Weight 59.874 kg GENERAL: The patient is lying in bed and is not in acute distress. CHEST: The heart rate is regular rate rhythm. No edema of upper extremities. LUNG: Clear to auscultation bilaterally no wheezing noted throughout. Not labored breathing. ABDOMEN/GI: Bowel sounds present in all 4 quadrants. No tenderness to palpation throughout. NEUROLOGICAL: Limited because of her cooperation. Higher mental function: The patient is awake, alert, oriented to self, place. She correctly stated the year but stated the month is September. She corrected stated the [facility], current [place] President. Patient is following commands. No aphasia and no neglect. Cranial nerves: I could not assess pupils or EOM because of her cooperation. Visual hope are full to confrontation throughout. The facial strength is normal throughout. Tongue is midline and moved [id number] without any difficulty. No dysarthria is noted. Rest is limited because of cooperation. Motor: The strength is moving above gravity without focality but could not assess individual muscles because of her cooperation (she kept on stating she wants to be left alone). Cerebellum: Normal finger to nose bilaterally. Sensation: Could not assess because of cooperation. Reflexes (right/left): She refused. Plantars She refused to be assessed. Results - Laboratory Findings CBC and BMP: 08/23/21 16:40 08/24/21 15:28 Abnormal Lab Findings: Abnormal Labs 08/23/21 08/23/21 16:40 16:40 MCV 77.9 L Potassium 3.3 L Carbon Dioxide 32 H Creatinine 0.46 L Glucose 110 H Creatine Kinase 24 L TSH 0.193 L Assessment and Plan Assessment: Altered mental status due to toxic encephalopathy from polysubstance abuse (methamphetamine and fentanyl overdose) Polysubstance abuse (fentanyl use and methamephetamine use) Depression Nicotine use Plan: Patient is refusing good neurological examination and any work-up for neurological perspective. There is no further neurological work-up. This seems more toxic encephalopathy from opoid overdose (even had it at psychiatry unit). Psychiatry and is consulted We'll defer the rest of the medical management to the primary team Patient was counseled on cessation of opoid use and tobacco use. Neurology will sign off. Please reconsult if needed. The plan is discussed with the nurse. Thank you for the consultation. Gui Ha MD Neuro-Hospitalist Time with Patient: Greater than 30
--- NOTE | 2021-08-24 10:26 | P.HPIM ---
History of Present Illness This is a pleasant 26 years old female with past medical history of Asthma, GERD, hypothyroidism, ovarian cyst, heroin addiction, nicotine dependence and anxiety Presents for drug overdose after she slipped fentanyl she became unresponsive and she was brought to the emergency room which responded and woken up after she received 2 mg of Narcan into the vein. Patient was admitted to the psych unit for depression and management of opioid use disorders and methamphetamine abuse. As per the psych nurse of yesterday whom I talked to patient was taken her lunch when she was noticed to be more drowsy on confused so she was helped to go back to her bed and there she told her nurse that she took fentanyl which she had in her vagina. Patient received 0.4 mg of Narcan and a repeat dose of 0.2 mg of Narcan and she woke up and her breathing improved as she was with slow breathing rate as low as 4 L/m. In the medical floor patient needed 3 doses of Narcan of 0.2 mg and another dose around 12 PM with a sitter was at bedside all the time and her heart rate and oxygen saturation and a breathing rate monitored closely. She didn't need any Narcan doses overnight since then. This morning she was fully awake and oriented to time place and person, she has an insight into her illness. She told me that she overdose with fentanyl and thus why she came from psych unit. Patient was counseled against using of these substances risks, including but not limited to are explained to her and she verbalized understanding. CT of the brain was negative. However patient denies any headache, no numbness or weakness. No slurred speech or blurred vision. She has some stomach upset but she denies any nausea vomiting or diarrhea. She tolerates diet. No dyspnea or chest pain or coughing. Patient also evaluated by neurologist but patient refuses full examination. Patient was cleared for discharge by neurologist. Problems and management plan were discussed with the patient and he verbalized understanding and acceptance Patient was found stable and can be discharged back to psych unit however he needs follow-up as an outpatient. Patient was instructed to follow up with PCP within one week and patient agrees. However patient currently Patient is medically stable to go to psych unit at 3 W. today. 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 History of Any Multi-Drug Resistant Organisms: MRSA Date of last positivie culture/infection: none MDRO Source:: none Past Surgical History: No Surgical Hx Reported Additional Past Surgical History / Comment(s): none reported Past Anesthesia/Blood Transfusion Reactions: No Reported Reaction Past Psychological History: Anxiety Smoking Status: Current some day smoker, Vaper Past Alcohol Use History: None Reported Past Drug Use History: Cocaine, Heroin, Marijuana, Opiates, Prescription Drug Abuse - Past Family History Father Family Medical History: No Reported History Medications and Allergies Home Medications Medication Instructions Recorded Confirmed Type No Known Home Medications 08/21/21 08/23/21 History Allergies Allergy/AdvReac Type Severity Reaction Status Date / Time No Known Allergies Allergy Verified 08/21/21 16:40 Physical Exam Vitals: Vital Signs Temp Pulse Resp BP Pulse Ox 08/24/21 06:14 12 97 08/24/21 05:00 11 L 08/24/21 04:00 11 L 08/24/21 03:24 12 97 08/24/21 01:26 98.6 F 96 12 93/50 98 08/24/21 01:06 12 97 08/24/21 00:00 12 08/23/21 22:35 15 08/23/21 22:27 10 L 08/23/21 22:25 9 L 08/23/21 20:45 7 L 08/23/21 20:00 98.1 F 88 10 L 100/59 97 08/23/21 19:12 16 97 08/23/21 19:07 10 L 97 08/23/21 17:19 97 08/23/21 17:12 73 14 08/23/21 16:40 14 08/23/21 15:42 97 08/23/21 14:05 98.3 F 73 14 100/62 Intake and Output 08/23/21 08/23/21 08/24/21 14:59 22:59 06:59 Intake Total 550 800 Balance 550 800 Intake: Intake, IV Titration 150 Amount Dextrose 5%-0.9% NaCl 1, 150 000 ml @ 75 mls/hr IV . [id number] [facility] Rx#:[id number] Oral 400 800 Other: Voiding Method Toilet # Voids 1 Weight 59.874 kg 59.874 kg Results CBC & Chem 7: 08/23/21 16:40 08/23/21 16:40 Labs: Abnormal Lab Results - Last 24 Hours (Table) 08/23/21 08/23/21 Range/Units 16:40 16:40 MCV 77.9 L (80.0-100.0) fL Potassium 3.3 L (3.5-5.1) mmol/L Carbon Dioxide 32 H (22-30) mmol/L Creatinine 0.46 L (0.52-1.04) mg/dL Glucose 110 H (74-99) mg/dL Creatine Kinase 24 L (30-135) U/L TSH 0.193 L (0.465-4.680) mIU/L Thrombosis Risk Factor Assmnt - Choose All That Apply Any of the Below Risk Factors Present?: No Other Risk Factors: No Thrombosis Risk Factor Assessment Level: Very Low Risk
[2021-08-24] MEDS: haloperidoL 5 MG TAB PO SCH (12:03)
--- NOTE | 2021-08-24 14:37 | P.CN ---
Psychiatric Consult - . Consult date: 08/24/21 Consult:: 08/24/21 13:27 IDENTIFYING DATA: This patient is a 26-year-old female with history of opioid dependence and methamphetamine use, currently lives with her father is unemployed lives in a house is single has no kids. REASON FOR REFERRAL: Psychiatry was consulted for continuation of care. HISTORY OF PRESENT ILLNESS: The patient presented to the hospital [initially and was admitted to the mental health floor for evaluation treatment of her depression and opiate use. Patient overdosed on opiates prior to coming into the hospital and received 2 mg of Narcan in the ER which relieved her symptoms. Patient was admitted to the mental health floor and during her stay headed fentanyl in her vagina and admitted to using it and overdosed once again on the unit and required 3 doses of Narcan as her vitals were decreasing. Patient was transferred to the medical floors for evaluation and treatment. Patient was seen today after speaking with her nurse. Patient is on a one-to-one sitter. She claims that she overdosed on fentanyl and claims that she was "just trying to get high". She denied it being a suicide attempt. She states that at home she began snorting it and "must have taken too much" after she overdosed. She states that she's been using fentanyl daily for about 5 years now. She states that she usually injects it however did not give a quantity. She also claims that she's been using methamphetamine daily however did not give a quantity. She states that she has been to rehab about 6 times in the past. She claims that she does want to get sober however does not want to go to rehab and wants to go to [place] instead. She states that she is not having any depression at this time and claims that she is not using any other drugs. She is denying any anxiety. She claims that she does hear voices at times telling her "you're about to be arrested" and is displaying mild paranoia about police coming to get her. She claims that her sleep has been fair and appetite is fair. She was fairly future oriented speaking about her nephew and her future which is the main reasons why she wants to live] . At this time patient denies any suicidal or homical ideations, intent or plan. Patient denies any auditory, visual hallucinations and denies any delusions. Patients admits to using methamphetamine as described above and fentanyl. She uses cigarettes daily. PAST PSYCHIATRIC HISTORY: Patient has a a history of opioid and polysubstance abuse. [Patient denies being on any psychiatric medications.] [Patient denies any previous psychiatric hospitalizations.] [Patient denies any psychiatric outpatient follow-up.] She claims that she overdosed once in the past. 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 CHEMICAL DEPENDENCY HISTORY: as per HPI. FAMILY PSYCHIATRIC/SUBSTANCE USE HISTORY: Claims that her father and brother b oth use drugs. SOCIAL HISTORY: Patient was born and raised in [facility]. She states that she completed high school. 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 She claims that she has been a gentleman the past however was guarded about what it was for. She is single has no kids. She currently lives with her dad in the house. MENTAL STATUS EXAM: General Appearance: Patient appears to be thin, tattoos, stated age is alert, attempts to be cooperative. Patient appears to have [fair] hygiene and grooming wearing hospital gown with poor eye contact. Behavior: [Patient is calmly lying in bed without any agitated behavior.] Speech: Patient's speech is fluent and nonpressured. Mood/Affect: Patient reports their mood is "fine", affect is congruent and constricted Suicidality/Homicidality: Patient denies having any suicidal or homicidal ideation intent or plan. Perceptions: Patient denies any visual hallucinations and admits to mild hardy tory hallucinations. Though content/process: Poverty of content, guarded at times. Logical. Memory and concentration: AOX3, grossly intact for the purposes of this session. 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 -Would recommend the following medication changes/additions: Risperdal 1 mg daily at bedtime for psychosis/hallucinations. Benadryl 25 mg daily at bedtime when necessary for insomnia. Haldol and Ativan PRN for agitation and anxiety. clonidine, loperamide and bentyl prn for opioid w/d sx, [-Continue 1:1 sitter for safety] [-cinder worker to provide patient with outpatient mental health/psychiatry resources for appropriate follow up upon discharge] [-Abstracter spoke with patient about substance abuse and the harmful effects on medical and mental health, patient verbally understood and agreed.] [-cinder worker to provide patient substance use treatment resources including AA/NA meetings in the community.] [-cinder worker to provide patient with access line number to call for inpatient substance rehab] -Communicated plan to patient's nurse and to Dr. Way -Will continue to follow along][-Psychiatry will sign off at this time -Please contact with any questions. 08/24/21 14:27
[2021-08-24] MEDS ORDERED: haloperidoL 5 MG TAB PO PRN (14:38)
[2021-08-24] MEDS ORDERED: HALOPERIDOL LACTATE 5 MG/ML 1 ML VIAL IM PRN (14:38)
[2021-08-24] MEDS ORDERED: LOPERAMIDE 2 MG CAP PO PRN (14:40)
[2021-08-24] MEDS ORDERED: DICYCLOMINE 20 MG TAB PO PRN (14:40)
[2021-08-24] MEDS: cloNIDine HCL 0.1 MG TAB PO PRN ×2 (14:48→22:29)
[2021-08-24] MEDS: LORazepam 1 MG TAB PO PRN ×2 (14:48→22:29)
[2021-08-24 16:04] LABS: African American GFR (CKD) >90 (>60 ml/min/1.73 sqM); Anion Gap 8 mmol/L; Blood Urea Nitrogen 8 mg/dL (7-17); Calcium 9.1 mg/dL (8.4-10.2); Carbon Dioxide 24 mmol/L (22-30); Chloride 107 mmol/L (98-107); Glucose 111 mg/dL (74-99); Non-African American GFR(CKD) >90 (>60 ml/min/1.73 sqM); Potassium 4.5 mmol/L (3.5-5.1); Sodium 139 mmol/L (137-145)
[2021-08-24] MEDS ORDERED: risperiDONE 1 MG TAB PO SCH (21:00)
[2021-08-25] MEDS: DEXTROSE 5%-0.9% NACL 1,000 ML IV SCH (05:50)
[2021-08-25] MEDS: FAMOTIDINE 20 MG TAB PO SCH (09:22)
[2021-08-25] MEDS: NICOTINE 14MG/24HR PATCH TRANSDERM SCH (09:22)
[2021-08-25] MEDS: HEPARIN SODIUM,PORCINE/PF 5,000 UNIT/0.5 ML SYRINGE SQ SCH (09:22)
[2021-08-25] MEDS: cloNIDine HCL 0.1 MG TAB PO PRN (13:24)
[2021-08-25] MEDS: LORazepam 1 MG TAB PO PRN (13:24)
[2021-08-25 14:08] VITALS: BP 103/70; PULSE 89; RESP 16; TEMP 98.3
--- NOTE | 2021-08-25 14:40 | P.PN ---
Progress Note - Text Progress Note Date: 08/25/21 Interval History: Patient was seen today for psychiatric follow-up regarding patient's polysubst ance abuse and psychotic features. Patient was seen at the bedside today and continues to be on a one-to-one sitter. She was fairly cooperative with brief writer today and claims that she is doing better. She states that the voices have gone away and that she is not experiencing any depression and anxiety. She also claims that she is having minimal withdrawal symptoms at this time from opiates. She did claim that she wants to eventually get back onto Suboxone in the future and realizes that she cannot keep on using fentanyl. She claims that she is willing to go to rehab and make a call today with the manager social media. She appears to be less impulsive today and more future oriented. She states that she does not want brief writer to speak with her mother at all. At this time patient denies any suicidal or homical ideations, intent or plan. Patient denies any auditory, visual hallucinations and denies any paranoia or delusions. Patient denies any side effects from the medications and has been compliant with meds. Mental Status Exam: General Appearance: Patient appears to be thin, tattoos, stated age is alert, attempts to be cooperative. Patient appears to have fair hygiene and grooming wearing hospital gown with improved eye contact. Behavior: Patient is calmly lying in bed without any agitated behavior. Less irritable today Speech: Patient's speech is fluent and nonpressured. Mood/Affect: Patient reports their mood is "good", affect is congruent and constricted Suicidality/Homicidality: Patient denies having any suicidal or homicidal ideation intent or plan. Perceptions: Patient denies any visual hallucinations and denies any auditory hallucinations. Though content/process: guarded at times. Logical. Future oriented Memory and concentration: AOX3, grossly intact for the purposes of this session. Can spell "WORLD" backwards Judgment and insight: Improving mildly however will continue to be chronically impulsive. 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 Most of patient's impulsivity and poor judgment are related to her substance use and likely character pathology and will likely be a chronic risk or self harm due to her substance use. -Would recommend the following medication changes/additions: Risperdal 1 mg daily at bedtime for psychosis/hallucinations. Benadryl 25 mg daily at bedtime when necessary for insomnia. Haldol and Ativan PRN for agitation and anxiety. clonidine, loperamide and bentyl prn for opioid w/d sx, -Continue 1:1 sitter for safety until patient is discharged from the hospital. -Solid Plasterer spoke with manager social media today Eddy, to update him on the plan and she will sit down with patient today to help her make the call to rehab for an intake appointment. -Communicated plan to patient's nurse -Psychiatry will sign off at this time -patient is not allowing brief writer to speak with her mother about her case. -Please contact with any questions.
[2021-08-25] MEDS ORDERED: LORazepam 2 MG/ML INJ IV STA (15:43)
--- NOTE | 2021-08-25 22:44 | P.DS ---
Providers Date of admission: 08/23/21 14:00 Attending physician: Bladimir Mcarthur Consults: 08/23/21 15:41 Consult Physician Urgent Consulting Provider: Osvaldo Lucio Consult Reason/Comments: Suicide Do you want consulting provider notified?: Yes Placement Type Exists?: Yes 08/23/21 16:16 Consult Physician Urgent Consulting Provider: Percy Londono Consult Reason/Comments: periods of confusion Do you want consulting provider notified?: Yes Placement Type Exists?: Yes Hospital Course: Please note the patient was not discharged but she signed leaving AGAINST MEDICAL ADVICE Diagnoses: -Noncompliance, patient refused medical management and she decided to leave AMA. Patient has capacity to make medical decision, confirmed with psychiatrist Dr. Stanley -Fentanyl overdose, reversed with Narcan and its effect has weaned off now. Resolved -Substance abuse with fentanyl, heroine and methamphetamine, management as per primary psych team -History of GERD -History of asthma, not in active tissue -Nicotine dependence, patient was counseled. We offered nicotine patch but she declines Hospital course: This is a pleasant 26 years old female with past medical history of Asthma, GERD, hypothyroidism, ovarian cyst, heroin addiction, nicotine dependence and anxiety Presents for drug overdose after she slipped fentanyl she became unresponsive and she was brought to the emergency room which responded and woken up after she received 2 mg of Narcan into the vein. Patient was admitted to the psych unit for depression and management of opioid use disorders and methamphetamine abuse. As per the psych nurse of yesterday whom I talked to patient was taken her lunch when she was noticed to be more drowsy on confused so she was helped to go back to her bed and there she told her nurse that she took fentanyl which she had in her vagina. Patient received 0.4 mg of Narcan and a repeat dose of 0.2 mg of Narcan and she woke up and her breathing improved thereafter she was transferred to the medical floor where she Had a close monitoring at 450, bedside nurse and there was a sitter monitor the patient on night and day. She received several doses of Narcan also, eventually her breathing stabilized and she woke up., Patient did not need any further Narcan and she was medically stable to be transferred back to the psych unit. However when I spoke with Dr. Stanley he informed me that the patient might not be accepted back to the psych unit as she does not qualify and there is no insurance coverage, therefore patient was kept in the general medical floor with psych consult and no involvement of the social media content specialist to help patient transferred to rehab like [facility]. Today patient was fully awake and oriented, calm, denies any other symptoms, she denies chest pain or dyspnea. No abdominal pain. No change in urine or bowel habits. No fever. No headache or dizziness or weakness or numbness. And she says she is back to her normal self. However patient sitting in bed most of the time. Sitter was still at bedside. Psychiatric evaluated the patient today and he signed off the case. I discussed the case with Dr. Stanley and he confirmed to me patient does not need to come back to the psych unit and he is signing of the case, later on during the day after rounding, was called by the bedside nurse miss Ivey that patient wanting to leave AMA, I called and discussed the case again with Dr. Stanley and informed with the patient wishes to leave AMA and he confirmed to me that patient can leave AMA from his perspective and we cannot prevent her from leaving AGAINST MEDICAL ADVICE, And since the patient is competent from her psychiatric and medical health to make decisions for herself, therefore medical team cannot hold her against her wishes and her right to leave the hospital. However I asked the bedside nurse to explain the risks to her including but not limited to the risk of addiction, opioid overdose, respiratory depression, organ dysfunction, stroke and/or . And despite advice the patient was adamant to leave AMA, I asked the bedside nurse also if the patient allows us to call her mother as it is cold outside, and the nurse informed me that the patient agrees for that and they have contacted the mother and she was coming to olive picker her. At that point patient did not want to wait and told staff She is going to wait for her mother in the lobby. Again, based upon my evaluation patient has capacity to make medical decision. And this is also confirmed with the psychiatrist. That's been said, medical team could not hold the patient against her wishes Physical exam Gen: patient is a AAOx3, no distress CVS: S1-S2, RRR, no murmur Lungs: B/L CTA, no wheezing Abdomen: soft, no distention, no tenderness, positive bowel sounds Extremity: no leg edema or induration Neuro: Cranial nerves are grossly intact. Strength is 5/5. Sensation intact. Meningeal signs are absent Time spent more than 35 minutes Plan - Discharge Summary Discharge Rx Participant: Yes New Discharge Prescriptions: New RX: haloperidoL [Haldol] 5 mg PO TID tab RX: Acetaminophen Tab [Tylenol] 650 mg PO Q4HR PRN tab PRN Reason: Fever And/ Or Pain RX: LORazepam [Ativan] 1 mg PO TID PRN tab PRN Reason: Agitation RX: Nicotine 14Mg/24Hr Patch [Habitrol] 1 patch TRANSDERM DAILY patch RX: Famotidine [Pepcid] 20 mg PO BID tab Naloxone HCl [Narcan] 4 mg NASAL ONCE PRN #1 each PRN Reason: Opioid Reversal Discharge Medication List Naloxone HCl [Narcan] 4 mg NASAL ONCE PRN #1 each 08/24/21 [Rx] RX: Acetaminophen Tab [Tylenol] 650 mg PO Q4HR PRN tab 08/24/21 [Rx] RX: Famotidine [Pepcid] 20 mg PO BID tab 08/24/21 [Rx] RX: LORazepam [Ativan] 1 mg PO TID PRN tab 08/24/21 [Rx] RX: Nicotine 14Mg/24Hr Patch [Habitrol] 1 patch TRANSDERM DAILY patch 08/24/21 [Rx] RX: haloperidoL [Haldol] 5 mg PO TID tab 08/24/21 [Rx] Follow up Appointment(s)/Referral(s): Osvaldo Lucio MD [Medical Doctor] - 1 Week Activity/Diet/Wound Care/Special Instructions: Regular diet Activity as tolerated Discharge Disposition: Left Against Medical Advice
== END 2021-08-25 16:23 | disposition left against medical advice (07) | DRG 917 ==
LOC: 4SSUR 14:00
PROVIDERS: ADMIT Hospitalist; ATTEND Hospitalist
DX: T50.901A Poisoning by unspecified drugs, medicaments and biological substances, accidental (unintentional), initial encounter (principal); G92.8 Other toxic encephalopathy; B39.2 Pulmonary histoplasmosis capsulati, unspecified; F11.20 Opioid dependence, uncomplicated; E03.9 Hypothyroidism, unspecified; T40.411A Poisoning by fentanyl or fentanyl analogs, accidental (unintentional), initial encounter; F15.159 Other stimulant abuse with stimulant-induced psychotic disorder, unspecified; F14.10 Cocaine abuse, uncomplicated; F41.9 Anxiety disorder, unspecified; K30 Functional dyspepsia; F12.10 Cannabis abuse, uncomplicated; F32.A Depression, unspecified; K21.9 Gastro-esophageal reflux disease without esophagitis; J45.909 Unspecified asthma, uncomplicated; Z53.29 Procedure and treatment not carried out because of patient's decision for other reasons; F17.210 Nicotine dependence, cigarettes, uncomplicated; Z71.6 Tobacco abuse counseling; Z71.51 Drug abuse counseling and surveillance of drug abuser; Z56.0 Unemployment, unspecified; Z87.42 Personal history of other diseases of the female genital tract; Z86.14 Personal history of Methicillin resistant Staphylococcus aureus infection
CPT/HCPCS: 70450; 80048; 80076; 82550; 83735; 84439; 84443; 84484; 84703; 85025; 94762

== ENCOUNTER 2021-09-13 14:44 | Observation (INO) | payer OTHER ==
[2021-09-13 15:00] VITALS: BP 109/75; PULSE 120; RESP 18; TEMP 98.6
--- NOTE | 2021-09-13 15:04 | ED ---
General Adult HPI - General Chief complaint: Psychiatric Symptoms Stated complaint: psych eval Time Seen by Provider: 09/13/21 14:55 Source: patient, EMS, RN notes reviewed Mode of arrival: EMS Limitations: no limitations - History of Present Illness Initial comments: Patient is a pleasant 18-year-old female presenting to the emergency department for mental health evaluation. Patient is brought in with police escort. Patient is aware she is under petition however not clear why. Patient denies any suicidal or homicidal thoughts. Patient states she is not supposed be on medications. Patient denies any hallucinations. Patient is concerned of fatigue and states she may have COVID-19 infection or is withdrawing from heroin. Patient denies alcohol use. Patient is petition with history and consistent with patient's. Patient reportedly is supposed be on lithium and not taking them. Patient supposedly also had recent depression and suicidal thoughts and suicide attempt. Patient recently was admitted to the psychiatric unit and transferred to medical following overdose and then patient left AGAINST MEDICAL ADVICE. - Related Data Previous Rx's Medication Instructions Recorded Acetaminophen Tab [Tylenol] 650 mg PO Q4HR PRN tab 08/24/21 Famotidine [Pepcid] 20 mg PO BID tab 08/24/21 LORazepam [Ativan] 1 mg PO TID PRN tab 08/24/21 Naloxone HCl [Narcan] 4 mg NASAL ONCE PRN #1 each 08/24/21 Nicotine 14Mg/24Hr Patch [Habitrol] 1 patch TRANSDERM DAILY patch 08/24/21 haloperidoL [Haldol] 5 mg PO TID tab 08/24/21 Allergies Allergy/AdvReac Type Severity Reaction Status Date / Time No Known Allergies Allergy Verified 09/13/21 15:00 Review of Systems ROS Statement: Those systems with pertinent positive or pertinent negative responses have been documented in the HPI. ROS Other: All systems not noted in ROS Statement are negative. 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 History of Any Multi-Drug Resistant Organisms: MRSA Date of last positivie culture/infection: none MDRO Source:: none Past Surgical History: No Surgical Hx Reported Additional Past Surgical History / Comment(s): none reported Past Anesthesia/Blood Transfusion Reactions: No Reported Reaction Past Psychological History: Anxiety Smoking Status: Current some day smoker, Vaper Past Alcohol Use History: None Reported Past Drug Use History: Cocaine, Heroin, Marijuana, Opiates, Prescription Drug Abuse - Past Family History Father Family Medical History: No Reported History General Exam Limitations: no limitations General appearance: alert, in no apparent distress Head exam: Present: normocephalic Eye exam: Present: normal appearance Neck exam: Present: normal inspection Respiratory exam: Present: normal lung sounds bilaterally Cardiovascular Exam: Present: regular rate, normal rhythm GI/Abdominal exam: Present: soft. Absent: tenderness Extremities exam: Present: normal inspection Neurological exam: Present: alert Psychiatric exam: Present: normal affect, normal mood Skin exam: Present: normal color Course Vital Signs 09/13/21 14:56 Temperature 98.6 F Pulse Rate 120 H Respiratory 18 Rate Blood Pressure 109/75 O2 Sat by Pulse 98 Oximetry - Reevaluation(s) Reevaluation #1: 09/13/21 16:07 Patient was seen by mental health services with plans for admission. Patient tested positive for COVID-19 infection and therefore will need medical admission and cannot go directly to psychiatric floor. Patient reevaluated and updated. Onset of Covid symptoms were 4 days ago. Positive clinical certificate completed. Medical Decision Making - Medical Decision Making Case was discussed with Dr. Gayle, who will admit for hospital call. - Lab Data Lab Results 09/13/21 Range/Units 15:02 Coronavirus (PCR) Detected A (Not Detectd) Disposition Clinical Impression: Bipolar disorder, Depression, Psychosis, COVID-19, Tachycardia Disposition: ADMITTED IP TO THIS HOSP Is patient prescribed a controlled substance at d/c from ED?: No Referrals: None,Stated [Primary Care Provider] - 1-2 days Decision Time: 16:08
[2021-09-13] MEDS ORDERED: NALOXONE 0.4 MG/ML 1 ML VIAL IV PRN (16:08)
--- NOTE | 2021-09-13 16:14 | XR ---
EXAMINATION TYPE: XR abdomen 1V DATE OF EXAM: 09/13/2021 COMPARISON: 05/31/2017 HISTORY: Flank pain TECHNIQUE: 2 views FINDINGS: Bowel gas pattern is normal. There is no sign of intestinal obstruction or pneumoperitoneum . Fecal pattern is normal. There is no evidence of a mass. There are no pathologic calcifications ove r the kidneys. IMPRESSION: Nonacute abdomen. No change.
[2021-09-13] MEDS ORDERED: SODIUM CHLORIDE 0.9% 1,000 ML IV SCH (16:15)
[2021-09-13] MEDS ORDERED: ACETAMINOPHEN TAB 325 MG TAB PO PRN (16:15)
[2021-09-13] MEDS ORDERED: ZINC SULFATE 220 MG CAP PO SCH (16:30)
[2021-09-13] MEDS ORDERED: CHOLECALCIFEROL 125 MCG (5000 IU) TABLET PO SCH (16:30)
--- NOTE | 2021-09-13 17:23 | P.HPIM ---
History of Present Illness H&P Date: 09/13/21 Chief Complaint: covid 26-year-old woman, vaccinated with a single dose of Narinder & Narinder, with medical history of major depressive disorder, anxiety, opiate abuse presented for mental health evaluation. Patient was brought in by police escort and was petitioned for evaluation. During the course of my interview, my understanding is that patient is having symptoms of coronavirus for the last few days, and therefore cannot be accepted to the mental health unit. Therefore, the plan was to admit the patient to the medical floor with psychiatry consult. Patient is oxygen well and does not require monoclonal antibody in regards for Covid. She only reports stuffy nose, rhinorrhea, congestion, chills. Denies difficulty breathing. Notably, patient was recently admitted and discharged for mental health evaluation. While she was in the mental health unit, she overdosed on fentanyl which she snuck in through her vagina. She was subsequently transferred to the medical floor and given Narcan multiple times until stabilized. Thereafter, she left the hospital AGAINST MEDICAL ADVICE. After informing the patient that she would require a psychiatry Dr. evaluation, which would not happen until tomorrow, patient became extremely agitated with labile mood. She was shown the petition signed by the emergency room physician citing her need to be evaluated. Shortly after the completion of my evaluation, patient eloped. She was chased by security, but escaped into the community. [place] [employer] was notified, and are in pursuit. Once patient is found, she will need to have repeated x-rays to ensure she does not have any drugs hidden away prior to admission to the floor. 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 History of Any Multi-Drug Resistant Organisms: MRSA Date of last positivie culture/infection: none MDRO Source:: none Past Surgical History: No Surgical Hx Reported Additional Past Surgical History / Comment(s): none reported Past Anesthesia/Blood Transfusion Reactions: No Reported Reaction Past Psychological History: Anxiety Smoking Status: Current some day smoker, Vaper Past Alcohol Use History: None Reported Past Drug Use History: Cocaine, Heroin, Marijuana, Opiates, Prescription Drug Abuse - Past Family History Father Family Medical History: No Reported History Medications and Allergies Home Medications Medication Instructions Recorded Confirmed Type Acetaminophen Tab [Tylenol] 650 mg PO Q4HR PRN tab 08/24/21 09/13/21 Rx Famotidine [Pepcid] 20 mg PO BID tab 08/24/21 09/13/21 Rx LORazepam [Ativan] 1 mg PO TID PRN tab 08/24/21 09/13/21 Rx Naloxone HCl [Narcan] 4 mg NASAL ONCE PRN #1 each 08/24/21 09/13/21 Rx Nicotine 14Mg/24Hr Patch [Habitrol] 1 patch TRANSDERM DAILY patch 08/24/21 09/13/21 Rx haloperidoL [Haldol] 5 mg PO TID tab 08/24/21 09/13/21 Rx Allergies Allergy/AdvReac Type Severity Reaction Status Date / Time No Known Allergies Allergy Verified 09/13/21 16:44 Physical Exam Osteopathic Statement: *. No significant issues noted on an osteopathic structural exam other than those noted in the History and Physical/Consult. Vitals: Vital Signs Temp Pulse Resp BP Pulse Ox 09/13/21 14:56 98.6 F 120 H 18 109/75 98 Intake and Output 09/13/21 09/13/21 09/13/21 06:59 14:59 22:59 Other: Weight 56.699 kg Gen: awake, alert HEENT: normocephalic, atraumatic, good hearing acuity, moist mucous membranes Resp: good air exchange, breathing comfortably with no accessory muscle use CVS: good distal perfusion x 4, GI: soft, NTTP, ND : no SPT, no CVAT, crum catheter not present MSK: no pitting edema, no clubbing Neuro: non-focal, moving all extremities Psych: Agitated, elevated mood Results Labs: Abnormal Lab Results - Last 24 Hours (Table) 09/13/21 Range/Units 15:02 Coronavirus (PCR) Detected A (Not Detectd) Assessment and Plan Assessment: Covid 19 Anxiety and depression Agitation Opiate use disorder Patient should be admitted to the medical floor for observation, however, she eloped. Plan was originally for psychiatric evaluation, and if/when she should return, we will admit her with one-to-one sitter after clearing her of hidden narcotics by repeating x-rays. Will need one-to-one sitter
--- NOTE | 2021-09-13 17:24 | P.DS ---
Providers Date of admission: 09/13/21 16:08 Expected date of discharge: 09/13/21 Attending physician: Regis Gayle MD Consults: 09/13/21 16:10 Consult Physician Urgent Consulting Provider: Az Nelson Consult Reason/Comments: mental health eval Do you want consulting provider notified?: Yes Primary care physician: Stated None Hospital Course: Patient eloped prior to completion of treatment Patient Condition at Discharge: Fair Plan - Discharge Summary New Discharge Prescriptions: No Action haloperidoL [Haldol] 5 mg PO TID tab Acetaminophen Tab [Tylenol] 650 mg PO Q4HR PRN tab PRN Reason: Fever And/ Or Pain LORazepam [Ativan] 1 mg PO TID PRN tab PRN Reason: Agitation Nicotine 14Mg/24Hr Patch [Habitrol] 1 patch TRANSDERM DAILY patch Famotidine [Pepcid] 20 mg PO BID tab Naloxone HCl [Narcan] 4 mg NASAL ONCE PRN #1 each PRN Reason: Opioid Reversal Discharge Medication List Acetaminophen Tab [Tylenol] 650 mg PO Q4HR PRN tab 08/24/21 [Rx] Famotidine [Pepcid] 20 mg PO BID tab 08/24/21 [Rx] LORazepam [Ativan] 1 mg PO TID PRN tab 08/24/21 [Rx] Naloxone HCl [Narcan] 4 mg NASAL ONCE PRN #1 each 08/24/21 [Rx] Nicotine 14Mg/24Hr Patch [Habitrol] 1 patch TRANSDERM DAILY patch 08/24/21 [Rx] haloperidoL [Haldol] 5 mg PO TID tab 08/24/21 [Rx] Follow up Appointment(s)/Referral(s): None,Stated [Primary Care Provider] - 1-2 days Discharge Disposition: Left Against Medical Advice
[2021-09-13] MEDS ORDERED: ASCORBIC ACID 500 MG TAB PO SCH (21:00)
== END 2021-09-13 16:50 | disposition left against medical advice (07) ==
LOC: EC 14:44 → 6NMEDSUR 16:08
PROVIDERS: ADMIT Internal Medicine; ATTEND Internal Medicine
DX: U07.1 COVID-19 (principal); F11.10 Opioid abuse, uncomplicated; F31.9 Bipolar disorder, unspecified; F41.9 Anxiety disorder, unspecified; R09.81 Nasal congestion; R00.0 Tachycardia, unspecified; R68.83 Chills (without fever); J34.89 Other specified disorders of nose and nasal sinuses; Z53.29 Procedure and treatment not carried out because of patient's decision for other reasons; J45.909 Unspecified asthma, uncomplicated; K21.9 Gastro-esophageal reflux disease without esophagitis; N83.209 Unspecified ovarian cyst, unspecified side; B39.9 Histoplasmosis, unspecified; E07.9 Disorder of thyroid, unspecified; F17.290 Nicotine dependence, other tobacco product, uncomplicated; F17.200 Nicotine dependence, unspecified, uncomplicated; Z86.14 Personal history of Methicillin resistant Staphylococcus aureus infection
CPT/HCPCS: 99285; 82075; 87635; 74018; G0378

== ENCOUNTER 2021-09-13 17:36 | Observation (INO) | payer OTHER ==
[2021-09-13] MEDS ORDERED: NALOXONE 0.4 MG/ML 1 ML VIAL IV PRN (17:41)
--- NOTE | 2021-09-13 17:43 | ED ---
General Adult HPI - General Stated complaint: petition Time Seen by Provider: 09/13/21 17:40 Source: RN notes reviewed, old records reviewed - History of Present Illness Initial comments: Patient is a 26-year-old psychiatric patient was originally admitted to the hospital for COVID-19 and for psychiatric evaluation. She was petitioned. She will from the emergency department. She returned and place custody and security kids custody again within 30 minutes. She states she was running the whole time. She did not use any drugs, denies any alcohol use. Currently denies any to settle or homicidal thoughts. Denies any visual or auditory hallucinations. History of heroin use. She was recently admitted to psychiatry the left AMA. She was reregistered when she was brought back, however the plan remains the same. She will be admitted to the hospital. I spoke with the admitting team under Dr. Gayle and he was in agreement this plan. Patient does have a history of packing, but denies any ability her chance to do so when she left. Her x-ray was negative for any signs of packing earlier. - Related Data Previous Rx's Medication Instructions Recorded Acetaminophen Tab [Tylenol] 650 mg PO Q4HR PRN tab 08/24/21 Famotidine [Pepcid] 20 mg PO BID tab 08/24/21 LORazepam [Ativan] 1 mg PO TID PRN tab 08/24/21 Naloxone HCl [Narcan] 4 mg NASAL ONCE PRN #1 each 08/24/21 Nicotine 14Mg/24Hr Patch [Habitrol] 1 patch TRANSDERM DAILY patch 08/24/21 haloperidoL [Haldol] 5 mg PO TID tab 08/24/21 Allergies Allergy/AdvReac Type Severity Reaction Status Date / Time No Known Allergies Allergy Verified 09/13/21 18:04 Review of Systems ROS Statement: Those systems with pertinent positive or pertinent negative responses have been documented in the HPI. Review of Systems: CONST: Denies fever EYES: Denies blurry vision ENT: Denies nasal congestion C/V: Denies Chest pain RESP: Denies shortness of breath GI: Denies abdominal pain : Denies dysuria SKIN: Denies rash. MSK: Denies joint pain. NEURO: Denies headache PSYCH: Denies suicidal and homicidal ideations/plans/attempts. Denies visual or auditory hallucinations. ROS Other: All systems not noted in ROS Statement are negative. 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 History of Any Multi-Drug Resistant Organisms: MRSA Date of last positivie culture/infection: none MDRO Source:: none Past Surgical History: No Surgical Hx Reported Additional Past Surgical History / Comment(s): none reported Past Anesthesia/Blood Transfusion Reactions: No Reported Reaction Past Psychological History: Anxiety Smoking Status: Current some day smoker, Vaper Past Alcohol Use History: None Reported Past Drug Use History: Cocaine, Heroin, Marijuana, Opiates, Prescription Drug Abuse - Past Family History Father Family Medical History: No Reported History General Exam - General Exam Comments Initial Comments: General: Appears in no acute distress. Eating a food tray. Resting comfortably. HEAD: Normal with no signs of head trauma. EYES: PERRLA, EOMI, conjunctiva normal, no discharge. Pupils are 3 mm and equal bilaterally. ENT: Hearing grossly intact, normal oropharynx. RESPIRATORY: Clear breath sounds bilaterally. No wheezes, rales, or rhonchi. C/V: Regular rate and rhythm. S1 and S2 auscultated, no edema, peripheral pulses 2+ and intact throughout ABD: Abd is soft, nontender, nondistended EXT: Normal range of motion, no obvious deformity SKIN: No rashes or lesions observed on exposed skin. NEURO: Alert and oriented 4. Course Vital Signs 09/13/21 17:57 Temperature 98 F Pulse Rate 121 H Respiratory 20 Rate Blood Pressure 124/73 O2 Sat by Pulse 99 Oximetry Medical Decision Making - Medical Decision Making Based on the patient's presentation and physical exam, the plan is still to admit the hospital, she is COVID-19 positive for psychiatric evaluation. However due to the patient eloping and then returning, we will repeat a breathalyzer level as well as UDS. We will also repeat x-rays. Patient was in agreement this plan. Sitter was placed. Patient's repeat breathalyzer was 0. UDS on repeat was positive for marijuana. Patient was positive for Covid earlier. Patient's x-rays were negative for any definitive foreign body, however I spoke the radiologist and he cannot rule out a possible foreign body in left upper quadrant. Therefore he recommended CT without contrast. This was delayed, but eventually completed and revealed no evidence of foreign bodies. 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 At this time patient is medically cleared. Patient will be admitted to inpatient medicine in stable condition. Psychiatry was consulted for evaluation. She was petitioned. I spoke with the admitting physician, Dr. Gayle was in agreement with this plan. Consult to psychiatry was also placed. Patient was therefore admitted in stable condition for psychiatric evaluation. Disposition Clinical Impression: Encounter for psychiatric assessment, COVID-19 virus infection Disposition: ADMITTED IP TO THIS HOSP Condition: Stable
--- NOTE | 2021-09-13 17:43 | P.HPIM ---
History of Present Illness H&P Date: 09/13/21 Chief Complaint: covid 26-year-old woman, vaccinated with a single dose of Narinder & Narinder, with medical history of major depressive disorder, anxiety, opiate abuse presented for mental health evaluation. Patient was brought in by police escort and was petitioned for evaluation. During the course of my interview, my understanding is that patient is having symptoms of coronavirus for the last few days, and therefore cannot be accepted to the mental health unit. Therefore, the plan was to admit the patient to the medical floor with psychiatry consult. Patient is oxygen well and does not require monoclonal antibody in regards for Covid. She only reports stuffy nose, rhinorrhea, congestion, chills. Denies difficulty breathing. Notably, patient was recently admitted and discharged for mental health evaluation. While she was in the mental health unit, she overdosed on fentanyl which she snuck in through her vagina. She was subsequently transferred to the medical floor and given Narcan multiple times until stabilized. Thereafter, she left the hospital AGAINST MEDICAL ADVICE. After informing the patient that she would require a psychiatry Dr. evaluation, which would not happen until tomorrow, patient became extremely agitated with labile mood. She was shown the petition signed by the emergency room physician citing her need to be evaluated. Shortly after the completion of my evaluation, patient eloped. She was chased by security, but escaped into the community. [place] [employer] was notified, and were in pursuit. She was found and brought back into the ER for a new encounter, she will need to have repeated x-rays to ensure she does not have any drugs hidden away prior to admission to the floor. 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 History of Any Multi-Drug Resistant Organisms: MRSA Date of last positivie culture/infection: none MDRO Source:: none Past Surgical History: No Surgical Hx Reported Additional Past Surgical History / Comment(s): none reported Past Anesthesia/Blood Transfusion Reactions: No Reported Reaction Past Psychological History: Anxiety Smoking Status: Current some day smoker, Vaper Past Alcohol Use History: None Reported Past Drug Use History: Cocaine, Heroin, Marijuana, Opiates, Prescription Drug Abuse - Past Family History Father Family Medical History: No Reported History Medications and Allergies Home Medications Medication Instructions Recorded Confirmed Type Acetaminophen Tab [Tylenol] 650 mg PO Q4HR PRN tab 08/24/21 09/13/21 Rx Famotidine [Pepcid] 20 mg PO BID tab 08/24/21 09/13/21 Rx LORazepam [Ativan] 1 mg PO TID PRN tab 08/24/21 09/13/21 Rx Naloxone HCl [Narcan] 4 mg NASAL ONCE PRN #1 each 08/24/21 09/13/21 Rx Nicotine 14Mg/24Hr Patch [Habitrol] 1 patch TRANSDERM DAILY patch 08/24/21 09/13/21 Rx haloperidoL [Haldol] 5 mg PO TID tab 08/24/21 09/13/21 Rx Allergies Allergy/AdvReac Type Severity Reaction Status Date / Time No Known Allergies Allergy Verified 09/13/21 16:44 Physical Exam Osteopathic Statement: *. No significant issues noted on an osteopathic structural exam other than those noted in the History and Physical/Consult. Gen: awake, alert HEENT: normocephalic, atraumatic, good hearing acuity, moist mucous membranes Resp: good air exchange, breathing comfortably with no accessory muscle use CVS: good distal perfusion x 4, GI: soft, NTTP, ND : no SPT, no CVAT, crum catheter not present MSK: no pitting edema, no clubbing Neuro: non-focal, moving all extremities Psych: Agitated, elevated mood Assessment and Plan Assessment: Covid 19 Anxiety and depression Agitation Opiate use disorder Patient should be admitted to the medical floor for observation, and psychiatric evaluation. She needs one-to-one sitter after clearing her of hidden narcotics by repeating x-rays.
[2021-09-13] MEDS ORDERED: LORazepam 1 MG TAB PO STA (18:33)
--- NOTE | 2021-09-13 18:34 | XR ---
EXAMINATION TYPE: XR abdomen 1V DATE OF EXAM: 09/13/2021 COMPARISON: Today HISTORY: Possible foreign body TECHNIQUE: 2 views upper FINDINGS: There is 4 x 11 cm elongated oval-shaped shadow over the left upper quadrant. It is not madelaine ar if this is arising from the spleen or is foreign body in the splenic flexure of the colon. There a re no pathologic calcifications. There is no intestinal obstruction or pneumoperitoneum. IMPRESSION: Nonacute bowel gas pattern. Oval-shaped density left upper quadrant and intestinal foreig n body not excluded.
[2021-09-13 18:50] LABS: Amphetamine Screen,Urine Not Detected (NotDetected); Barbiturate Screen,Urine Not Detected (NotDetected); Benzodiazepines Screen,Urine Not Detected (NotDetected); Cocaine Screen,Urine Not Detected (NotDetected); Methadone Screen, Urine Not Detected (NotDetected); Opiate Screen,Urine Not Detected (NotDetected); Oxycodone Screen, Urine Not Detected (NotDetected); Phencyclidine Screen,Urine Not Detected (NotDetected); Tricyclic Antidepressant,Urine Not Detected (NotDetected); Urn Cannabinoid Scrn Detected (NotDetected)
--- NOTE | 2021-09-13 21:18 | CT ---
EXAMINATION TYPE: CT abdomen pelvis wo con DATE OF EXAM: 09/13/2021 COMPARISON: 05/31/2017 HISTORY: Possible ingestion of foreign body. History of packing. CT DLP: 435 mGycm Automated exposure control for dose reduction was used. Images obtained without contrast from the diaphragm to the floor the pelvis. FINDINGS: Lung bases are clear. There is no pleural effusion. Heart size is normal. There are small calcified s plenic granulomata. Spleen is enlarged and measures 17 cm. Enlarged spleen accounts for the shadow ov er the left side of the abdomen on the abdomen x-ray. The liver is intact. Bile ducts are nondilated. There is no pancreatic mass. Stomach is intact. Bladder distends smoothly. There is no inguinal hernia. There is no free fluid in the pelvis. Uterus is anteverted. There is no evidence of a pelvic mass. There is no mesenteric edema. There is no ascites or free air. There is no evidence of a bowel obstru ction. There is some deformity of the right kidney which is partly duplicated. There is no evidence o f intestinal foreign body. There is no filling defect. The lumbar vertebrae appear intact. Bony pelvis intact. IMPRESSION: No evidence of abdominal foreign body or intestinal foreign body. Old granulomatous disease. Splenome arlene. Elongated partly duplicated right kidney.
[2021-09-14] MEDS ORDERED: LOPERAMIDE 2 MG CAP PO PRN (11:58)
[2021-09-14] MEDS ORDERED: ACETAMINOPHEN TAB 325 MG TAB PO PRN (11:58)
[2021-09-14] MEDS ORDERED: ONDANSETRON 4 MG TAB PO PRN (11:58)
--- NOTE | 2021-09-14 13:33 | P.CN ---
Psychiatric Consult - . Consult date: 09/14/21 Consult:: 09/14/21 13:32 IDENTIFYING DATA: This patient is a single, unemployed, 26-year-old female with significant history of polysubstance abuse who presents to the hospital on a petition and certification for bipolar disorder. HISTORY OF PRESENT ILLNESS: The patient presented to the hospital on 09/13/2021, brought in under petition and certification for bipolar disorder and increased risk taking behaviors. The patient has tested positive for covid. The patient was noted to be angry and labile during her initial evaluation by the emergency room physician. Furthermore, the patient did elope from the emergency room and escaped into the community. Poor here on Police Department was informed and brought the patient back to the emergency department for a new encounter. The patient was most recently on our psychiatric unit but was transferred to the medical floor after ingesting friends know which she snuck into the psychiatric unit through her vagina. She was transferred to the medical floor however left AGAINST MEDICAL ADVICE. Since she was last discharged from this hospital, the patient reports that she has had no issues regarding her mood. She states that she was upset yesterday because her boyfriend was being sent [facility] and that this would be the last time she would have the opportunity to see him. Furthermore, the patient denies any substance use recently stating that she has not used since she left this hospital last. The patient reports that she is trying to go to rehabilitation but is unable to go to rehab due to her Covid-19 positive status. The patient is currently denying any suicidal or homicidal ideation, intention, and/or plan. She is currently denying any auditory or visual hallucinations. She reports no paranoia or other delusions. He regrets other mood symptoms, the patient is denying any increase in goal-directed activity, mood lability, racing thoughts, or grandiosity. The patient expresses that she has not taken any psychotropic medications that she feels like they are unnecessary and that her primary issue continues to be her drug use. She has not followed up with any outpatient psychiatric services. As per petition, the patient's mother expresses concern for the patient's increased risk taking behaviors that have led to serious bodily harm including the recent overdose on fentanyl while on the psychiatric unit. Patient does not wish to receive any treatment at this time. It is noted as per chart review, the patient has displayed very bizarre behavior including hallucinations in the past. She subsequently is going to be admitted for further evaluation. PAST PSYCHIATRIC HISTORY: Patient has a history of bipolar disorder and polysubstance abuse. She was most recently on lithium however has been nonadherent with his medication over the past month. She was most recently hospitalized on our psychiatric unit this past August however and overdosed on fentanyl which she smuggled into the unit and was transferred to the medical floor after which she signed out AGAINST MEDICAL ADVICE. Patient denies any psychiatric outpatient follow-up. 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 History of Any Multi-Drug Resistant Organisms: MRSA Date of last positivie culture/infection: none MDRO Source:: none Past Surgical History: No Surgical Hx Reported Additional Past Surgical History / Comment(s): none reported Past Anesthesia/Blood Transfusion Reactions: No Reported Reaction Past Psychological History: Anxiety Smoking Status: Current some day smoker, Vaper Past Alcohol Use History: None Reported Past Drug Use History: Cocaine, Heroin, Marijuana, Opiates, Prescription Drug Abuse ALLERGIES: NO KNOWN DRUG ALLERGIES CHEMICAL DEPENDENCY HISTORY: Patient denies any drug use since she was last admitted to this hospital. She has previously used cocaine, heroin, marijuana, and illicit prescription opiates. She is scheduled to go to rehabilitation [facility] next week. FAMILY PSYCHIATRIC/SUBSTANCE USE HISTORY: Unable to obtain. SOCIAL HISTORY: Patient is single, currently unemployed. Unable to obtain any further history. MENTAL STATUS EXAM: General Appearance: Patient appears to be stated age is alert, irritable, but cooperative. Patient appears to have fair hygiene and grooming wearing hospital gown with intermittent eye contact. Behavior: Patient is calmly lying in bed without any agitated behavior. Patient has had to be redirected multiple times to cover herself. Speech: Patient's speech is fluent and nonpressured. Mood/Affect: Patient reports their mood is "annoyed", affect is congruent and irritable Suicidality/Homicidality: Patient denies having any suicidal or homicidal ideation intent or plan. Perceptions: Patient denies any visual hallucinations and denies any auditory hallucinations Though content/process: There is no evidence of any delusional thought content and thought process is linear and goal-directed. Memory and concentration: AOX3, grossly intact for the purposes of this session. Can spell "WORLD" backwards Judgment and insight: Very poor. Vital Signs Temp 98.8 F 09/13/21 22:16 Pulse 96 09/14/21 06:12 Resp 18 09/14/21 06:12 BP 111/70 09/14/21 06:12 Pulse Ox 98 09/14/21 06:12 Intake & Output 09/13/21 09/14/21 09/14/21 18:59 06:59 18:59 Weight 56.699 kg Laboratory Results - Last 24 Hours 09/13/21 18:04 Urine Opiates Screen Not Detected Ur Oxycodone Screen Not Detected Urine Methadone Screen Not Detected Ur Propoxyphene Screen Not Detected Ur Barbiturates Screen Not Detected U Tricyclic Antidepress Not Detected Ur Phencyclidine Scrn Not Detected Ur Amphetamines Screen Not Detected U Methamphetamines Scrn Not Detected U Benzodiazepines Scrn Not Detected Urine Cocaine Screen Not Detected U Marijuana (THC) Screen Detected H IMPRESSIONS: Bipolar disorder, unspecified Opiate use disorder Methamphetamine use disorder Marijuana use disorder PLAN: -At this time patient DOES meet criteria for inpatient psychiatric admission. The patient has displayed several risk-taking behaviors including an elopement from the emergency department as well as a recent overdose on fentanyl while admitted in psychiatric care. Due to the increased risk taking behaviors, it is preferable that the patient is evaluated in a controlled setting and appropriately triaged from here. -Would recommend the following medication changes/additions: We will start medications as needed for opiate withdrawal including Catapres, Imodium, Zofran, and Tylenol for opiate withdrawal symptoms We will start Seroquel 50 mg by mouth at bedtime for mood lability/stabilization Ativan and Haldol PRN for agitation/aggression -Continue 1:1 sitter for safety -Second clinical certificate has been filled out by this provider as the patient is unlikely to cooperate with treatment and continues to present with minimal risk of harm to self and has made evident by her recent elopement as well as recent overdose and our psychiatric unit. -We will continue to follow and evaluate the patient. She does test positive for Covid. Once appropriate protocols are met, if patient continues to meet criteria for inpatient psychiatric care, we will have her transferred to the psychiatric unit. In the meantime we will continue to evaluate and treat the patient on the medical floor. 09/14/21 13:32
[2021-09-14] MEDS ORDERED: LORazepam 1 MG TAB PO STA (15:04)
--- NOTE | 2021-09-14 17:55 | P.PN ---
Subjective Progress Note Date: 09/14/21 Principal diagnosis: Psychosis Patient was evaluated in the major department accompanied a new symptom talked. She is awake alert oriented 3. She was cooperative during my examination. Evaluated by psychiatrist a few minutes ago. We will continue to coronary care with them. Continue with one-to-one sitter. Objective - Vital Signs Vital signs: Vital Signs Temp 98.8 F 09/13/21 22:16 Pulse 96 09/14/21 06:12 Resp 18 09/14/21 06:12 BP 111/70 09/14/21 06:12 Pulse Ox 98 09/14/21 06:12 Intake & Output 09/13/21 09/14/21 09/14/21 18:59 06:59 18:59 Weight 56.699 kg - Exam Constitutional: No acute distress, conversant, pleasant however slightly agitated Neck: Supple, FROM, no masses, or JVD, No carotid bruits, No thyromegaly Lungs: Clear to auscultation, Clear to percussion, Normal respiratory effort, no accessory muscle use Cardiovascular: Heart regular in rate and rhythm, No murmurs, gallops, or rubs, No peripheral edema - Labs Labs: Abnormal Lab Results - Last 24 Hours (Table) 09/13/21 Range/Units 18:04 U Marijuana (THC) Screen Detected H (NotDetected) Assessment and Plan Plan: Assessment #1 bipolar disorder unspecified #2.Opioid disorder/polysubstance abuse. Plan: -Continue one-to-one sitter -Aspiration/fall precaution -Psychiatry consult on board recommendations noted -Patient qualifies for inpatient psychiatric admission unfortunately COVID-19 positive. Disposition despite discharge once inpatient psychiatric unit available we'll coordinate with case management.
[2021-09-14] MEDS ORDERED: QUEtiapine 50 MG TAB PO SCH (21:00)
[2021-09-15 10:54] LABS: African American GFR (CKD) >90 (>60 ml/min/1.73 sqM); Anion Gap 8 mmol/L; Blood Urea Nitrogen 15 mg/dL (7-17); Calcium 9.6 mg/dL (8.4-10.2); Carbon Dioxide 24 mmol/L (22-30); Chloride 107 mmol/L (98-107); Glucose 107 mg/dL (74-99); Non-African American GFR(CKD) >90 (>60 ml/min/1.73 sqM); Potassium 4.1 mmol/L (3.5-5.1); Sodium 139 mmol/L (137-145)
[2021-09-15 12:10] LABS: HGB 13.7 gm/dL (11.4-16.0); RBC 5.43 m/uL (3.80-5.40); WBC 4.2 k/uL (3.8-10.6)
[2021-09-15 12:11] LABS: Basophils % (A) 1 %; Eosinophils % (A) 1 %; HCT 42.4 % (34.0-46.0); Lymphocytes # (A) 1.6 k/uL (1.0-4.8); Lymphocytes % (A) 38 %; MCH 25.2 pg (25.0-35.0); MCHC 32.3 g/dL (31.0-37.0); MCV 78.1 fL (80.0-100.0); Mean Platelet Volume 6.8; Monocytes # (A) 0.3 k/uL (0-1.0); Monocytes % (A) 6 %; Neutrophils # (A) 2.2 k/uL (1.3-7.7); Neutrophils % (A) 52 %; Platelet Count 207 k/uL (150-450); RDW 14.6 % (11.5-15.5)
--- NOTE | 2021-09-15 13:38 | P.PN ---
Progress Note - Text Progress Note Date: 09/15/21 Interval History: Patient was seen resting in bed comfortably and was directable and agreeable to speak with the adjusto writer operator in the room. Currently, the patient reports that she is feeling better with the addition of Seroquel. She reports that this medication was beneficial to her in the past however contributed to significant weight gain for her. She states that she was also previously on Lamictal which help address her mood lability and depression. The patient states that she is remorseful for her actions and apologizes to this provider. She states that she was not entirely forthcoming with information before and does admit that she did use drugs the day of her readmission to this hospital. She is currently denying any suicidal or homicidal ideation, intention, and/or plan. She is not reporting any auditory or visual hallucinations and paranoia or other delusions. The patient has been adherent with her medications and is not endorsing any significant side effects at this time. She does remain future oriented and states that when she is done with her covid quarantine she plans to go to [place] for rehabilitation. She states she would like to follow with [facility] in the outpatient setting if possible. Mental Status Exam: General Appearance: Patient appears to be stated age is alert, directable, and cooperative. The patient has numerous tattoos. Slightly disheveled. Behavior: Patient is calmly seated without any agitated behavior. Speech: Patient's speech is fluent and nonpressured. Mood/Affect: Mood is improving mildly, affect is congruent and constricted. Suicidality/Homicidality: Patient denies having any suicidal or homicidal ideation intent or plan. Perceptions: Patient denies any visual hallucinations and denies any auditory hallucinations Though content/process: There is no evidence of any delusional thought content and thought process is linear and goal-directed. Memory and concentration: AOX3, grossly intact for the purposes of this session Judgment and insight: Improving mildly Vital Signs Temp 98.9 F 09/15/21 07:00 Pulse 89 09/15/21 07:00 Resp 16 09/15/21 07:00 BP 109/79 09/15/21 07:00 Pulse Ox 98 09/15/21 07:00 Intake & Output 09/14/21 09/15/21 09/15/21 18:59 06:59 18:59 Weight 56.699 kg Other: # Voids 1 Laboratory Results - Last 24 Hours 09/15/21 09/15/21 10:24 10:24 WBC 4.2 RBC 5.43 H Hgb 13.7 Hct 42.4 MCV 78.1 L MCH 25.2 MCHC 32.3 RDW 14.6 Plt Count 207 MPV 6.8 Neutrophils % 52 Lymphocytes % 38 Monocytes % 6 Eosinophils % 1 Basophils % 1 Neutrophils # 2.2 Lymphocytes # 1.6 Monocytes # 0.3 Eosinophils # 0.0 Basophils # 0.0 Sodium 139 Potassium 4.1 Chloride 107 Carbon Dioxide 24 Anion Gap 8 BUN 15 Creatinine 0.54 Est GFR (CKD-EPI)AfAm >90 Est GFR (CKD-EPI)NonAf >90 Glucose 107 H Calcium 9.6 Assessment Bipolar disorder, unspecified Opiate use disorder Methamphetamine use disorder Marijuana use disorder Plan: -Patient continues to meet criteria for inpatient psychiatric admission for symptom stabilization and safety. Patient has been petitioned and certified. -Medications: We will increase Seroquel to 75 mg at bedtime for mood stability/stabilization. We will continue medications as needed for opiate withdrawal. We will start Lamictal 25 mg by mouth at bedtime for bipolar depression We will start Vistaril 50 mg by mouth every as needed for anxiety -SW to be on board for discharge planning. Patient plans to go to [place] for rehab. -Will continue to follow along. Currently meeting criteria for inpatient psychiatric admission as we titrate medications.
[2021-09-15] MEDS: hydrOXYzine pamoate 25 MG CAP PO PRN ×2 (14:20→20:32)
[2021-09-15] MEDS: cloNIDine HCL 0.1 MG TAB PO PRN ×2 (14:25→20:32)
--- NOTE | 2021-09-15 16:42 | P.PN ---
Subjective Progress Note Date: 09/15/21 Principal diagnosis: Psychosis Patient was examined in the emergency department. She was cooperative however started to get anxious regarding discharge planning. Case discussed in depth regarding her hospital course and plan. Objective - Vital Signs Vital signs: Vital Signs Temp 98.7 F 09/15/21 15:15 Pulse 91 09/15/21 15:15 Resp 16 09/15/21 15:15 BP 112/76 09/15/21 15:15 Pulse Ox 98 09/15/21 15:15 Intake & Output 09/14/21 09/15/21 09/15/21 18:59 06:59 18:59 Weight 56.699 kg Other: # Voids 1 - Exam Constitutional: No acute distress, conversant, pleasant however slightly agitated Neck: Supple, FROM, no masses, or JVD, No carotid bruits, No thyromegaly Lungs: Clear to auscultation, Clear to percussion, Normal respiratory effort, no accessory muscle use Cardiovascular: Heart regular in rate and rhythm, No murmurs, gallops, or rubs, No peripheral edema - Labs CBC & Chem 7: 09/15/21 10:24 09/15/21 10:24 Labs: Abnormal Lab Results - Last 24 Hours (Table) 09/15/21 09/15/21 Range/Units 10:24 10:24 RBC 5.43 H (3.80-5.40) m/uL MCV 78.1 L (80.0-100.0) fL Glucose 107 H (74-99) mg/dL Assessment and Plan Plan: Assessment #1 bipolar disorder unspecified #2.Opioid disorder/polysubstance abuse. Plan: -Continue one-to-one sitter -Aspiration/fall precaution -Psychiatry consult on board recommendations noted. -Patient qualifies for inpatient psychiatric admission unfortunately COVID-19 positive. Disposition despite discharge once inpatient psychiatric unit available we'll coordinate with case management.
[2021-09-15] MEDS: metFORMIN 500 MG TAB PO SCH (17:34)
[2021-09-15] MEDS ORDERED: lamoTRIgine 25 MG TAB PO SCH (21:00)
[2021-09-15] MEDS ORDERED: QUEtiapine 25 MG TAB PO SCH (21:00)
[2021-09-16] MEDS: metFORMIN 500 MG TAB PO SCH (09:00)
[2021-09-16 09:40] VITALS: RESP 18; TEMP 98.3
--- NOTE | 2021-09-16 13:07 | P.PN ---
Progress Note - Text Progress Note Date: 09/16/21 Interval History: Patient was seen resting in bed comfortably and was directable and agreeable to speak with the flex o writer operator in the room. Patient is reporting she is feeling well. She is currently denying any suicidal or homicidal ideation, intention, and/or plan. She reports no auditory or visual hallucinations. She denies any paranoia or other delusions. She has been adherent with her medications and is not endorsing any significant side effect at this time. She reports she spoke with her mother who reportedly did not know that the patient was not in rehab due to her Covid positive status and not due to her attempting to avoid rehab. The patient reports the conversation with her mother went well. She is agreeable to follow-up in the outpatient setting and plans to go to [place] in the near future. Mental Status Exam: General Appearance: Patient appears to be stated age is alert, directable, and cooperative. The patient has numerous tattoos. Improved hygiene and grooming. Behavior: Patient is calmly seated without any agitated behavior. Speech: Patient's speech is fluent and nonpressured. Mood/Affect: Mood is improving mildly, affect is congruent and euthymic. Suicidality/Homicidality: Patient denies having any suicidal or homicidal ideation intent or plan. Perceptions: Patient denies any visual hallucinations and denies any auditory hallucinations Though content/process: There is no evidence of any delusional thought content and thought process is linear and goal-directed. Memory and concentration: AOX3, grossly intact for the purposes of this session Judgment and insight: Improving mildly Assessment Bipolar disorder, unspecified Opiate use disorder Methamphetamine use disorder Marijuana use disorder Plan: -Patient DOES NOT meet criteria for inpatient psychiatric hospitalization at this time. She is not presenting with imminent risk of harm to self or others. She is future and goal-oriented and has is recommended to follow-up in the outpatient setting for continued psychiatric care. -Medications: Seroquel to 75 mg at bedtime for mood stability/stabilization. Lamictal 25 mg by mouth at bedtime for bipolar depression -SW to be on board for discharge planning. Patient plans to go to [place] for rehab. -Psychiatry will sign off at this time. Thank you for this consult. Please contact us or consult us if any questions or concerns.
--- NOTE | 2021-09-16 14:02 | P.DS ---
Providers Date of admission: 09/13/21 17:42 Expected date of discharge: 09/16/21 Attending physician: Regis Gayle MD Consults: 09/13/21 17:38 Consult Physician Urgent Consulting Provider: Ernesto Stanley Consult Reason/Comments: mental health eval Do you want consulting provider notified?: Already Contacted Primary care physician: Stated None Hospital Course: History of present illness per H&P: 26-year-old woman, vaccinated with a single dose of Narinder & Narinder, with medical history of major depressive disorder, anxiety, opiate abuse presented for mental health evaluation. Patient was brought in by police escort and was petitioned for evaluation. During the course of my interview, my understanding is that patient is having symptoms of coronavirus for the last few days, and therefore cannot be accepted to the mental health unit. Therefore, the plan was to admit the patient to the medical floor with psychiatry consult. Patient is o xygen well and does not require monoclonal antibody in regards for Covid. She only reports stuffy nose, rhinorrhea, congestion, chills. Denies difficulty breathing. Notably, patient was recently admitted and discharged for mental health evaluation. While she was in the mental health unit, she overdosed on fentanyl which she snuck in through her vagina. She was subsequently transferred to the medical floor and given Narcan multiple times until stabilized. Thereafter, she left the hospital AGAINST MEDICAL ADVICE. After informing the patient that she would require a psychiatry Dr. evaluation, which would not happen until tomorrow, patient became extremely agitated with labile mood. She was shown the petition signed by the emergency room physician citing her need to be evaluated. Shortly after the completion of my evaluation, patient eloped. She was chased by security, but escaped into the community. [place] [employer] was notified, and were in pursuit. She was found and brought back into the ER for a new encounter, she will need to have repeated x-rays to ensure she does not have any drugs hidden away prior to admission to the floor. Hospital course: #COVID-19 -Asymptomatic, patient room air #Anxiety and depression with agitation -Psychiatry note the patient is not suicidal risk. -Psychiatry started the patient on Seroquel and Lamictal at night -Patient cleared for discharge per psychiatry #History of opiate use disorder Assessment: Physical examination on discharge: General: non toxic, no distress, appears at stated age Derm: warm, dry Head: atraumatic, normocephalic, symmetric Eyes: EOMI, no lid lag, anicteric sclera Mouth: no lip lesion, mucus membranes moist Cardiovascular: S1S2 reg, no murmur, positive posterior tibial pulse bilateral, Lungs: CTA bilateral, no rhonchi, no rales , no accessory muscle use Abdominal: soft, nontender to palpation, no guarding, no appreciable organomegaly Ext: no gross muscle atrophy, no edema, no contractures Neuro: CN II-XI grossly intact, no focal neuro deficits Psych: Alert, oriented, appropriate affect Procedures: None Patient Condition at Discharge: Good Plan - Discharge Summary Discharge Rx Participant: No New Discharge Prescriptions: New lamoTRIgine [LaMICtal] 25 mg PO HS 30 Days #30 tab QUEtiapine [SEROquel] 75 mg PO HS 30 Days #30 tab Continue Acetaminophen Tab [Tylenol] 650 mg PO Q4HR PRN tab PRN Reason: Fever And/ Or Pain LORazepam [Ativan] 1 mg PO TID PRN tab PRN Reason: Agitation Nicotine 14Mg/24Hr Patch [Habitrol] 1 patch TRANSDERM DAILY patch Famotidine [Pepcid] 20 mg PO BID tab Naloxone HCl [Narcan] 4 mg NASAL ONCE PRN #1 each PRN Reason: Opioid Reversal Discontinued haloperidoL [Haldol] 5 mg PO TID tab Discharge Medication List Acetaminophen Tab [Tylenol] 650 mg PO Q4HR PRN tab 08/24/21 [Rx] Famotidine [Pepcid] 20 mg PO BID tab 08/24/21 [Rx] LORazepam [Ativan] 1 mg PO TID PRN tab 08/24/21 [Rx] Naloxone HCl [Narcan] 4 mg NASAL ONCE PRN #1 each 08/24/21 [Rx] Nicotine 14Mg/24Hr Patch [Habitrol] 1 patch TRANSDERM DAILY patch 08/24/21 [Rx] QUEtiapine [SEROquel] 75 mg PO HS 30 Days #30 tab 09/16/21 [Rx] lamoTRIgine [LaMICtal] 25 mg PO HS 30 Days #30 tab 09/16/21 [Rx] Follow up Appointment(s)/Referral(s): None,Stated [Primary Care Provider] - 1-2 days Discharge Disposition: HOME SELF-CARE
[2021-09-16 14:21] VITALS: BP 110/71; PULSE 94
== END 2021-09-16 14:26 | disposition home or self-care (01) ==
LOC: EC 17:36 → 6NMEDSUR 17:42 → 4SSUR 09-15 20:44
PROVIDERS: ADMIT Internal Medicine; ATTEND Internal Medicine
DX: U07.1 COVID-19 (principal); F31.9 Bipolar disorder, unspecified; F11.10 Opioid abuse, uncomplicated; F15.10 Other stimulant abuse, uncomplicated; F12.10 Cannabis abuse, uncomplicated; R45.1 Restlessness and agitation; F41.9 Anxiety disorder, unspecified; T50.996A Underdosing of other drugs, medicaments and biological substances, initial encounter; Z91.128 Patient's intentional underdosing of medication regimen for other reason; R68.83 Chills (without fever); R09.81 Nasal congestion; J34.89 Other specified disorders of nose and nasal sinuses; R16.1 Splenomegaly, not elsewhere classified; K21.9 Gastro-esophageal reflux disease without esophagitis; F17.200 Nicotine dependence, unspecified, uncomplicated; F17.290 Nicotine dependence, other tobacco product, uncomplicated; J45.909 Unspecified asthma, uncomplicated; Q63.0 Accessory kidney; E07.9 Disorder of thyroid, unspecified; N83.209 Unspecified ovarian cyst, unspecified side; B39.9 Histoplasmosis, unspecified; D71 Functional disorders of polymorphonuclear neutrophils; Z71.51 Drug abuse counseling and surveillance of drug abuser; Z86.14 Personal history of Methicillin resistant Staphylococcus aureus infection
CPT/HCPCS: 99285; 82075; 80048; 85025; 80306; 74018; 74176; G0378 ×5

== ENCOUNTER 2021-10-03 20:27 | Inpatient (IN) | payer MEDICAID, OTHER ==
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
[2021-10-03 23:13] LABS: Amphetamine Screen,Urine Detected (NotDetected); Barbiturate Screen,Urine Not Detected (NotDetected); Benzodiazepines Screen,Urine Not Detected (NotDetected); Cocaine Screen,Urine Detected (NotDetected); Methadone Screen, Urine Detected (NotDetected); Opiate Screen,Urine Detected (NotDetected); Oxycodone Screen, Urine Not Detected (NotDetected); Phencyclidine Screen,Urine Not Detected (NotDetected); Tricyclic Antidepressant,Urine Not Detected (NotDetected); Urn Cannabinoid Scrn Detected (NotDetected)
--- NOTE | 2021-10-03 23:43 | XR ---
EXAMINATION TYPE: XR KUB DATE OF EXAM: 10/03/2021 COMPARISON: 09/13/2021 HISTORY: Possible foreign body TECHNIQUE: 2 views of the right FINDINGS: There is no sign of intestinal obstruction or pneumoperitoneum. Fecal pattern is normal. Th ere is no evidence of radiopaque foreign body. Lung bases are clear. IMPRESSION: Nonacute abdomen. No evidence of a foreign body.
[2021-10-04] MEDS ORDERED: SODIUM CHLORIDE 0.9% 500 ML 500 ML IV STA (00:53)
[2021-10-04] MEDS ORDERED: SODIUM CHLORIDE 0.9% 1,000 ML IV STA (00:53)
[2021-10-04] MEDS ORDERED: NALOXONE 0.4 MG/ML 1 ML VIAL IV PRN (00:55)
[2021-10-04] MEDS ORDERED: ONDANSETRON 4 MG/2 ML VIAL IVP PRN (00:55)
[2021-10-04] MEDS ORDERED: LORazepam 2 MG/ML INJ IV PRN (00:55)
--- NOTE | 2021-10-04 00:58 | ED ---
Medical Decision Making - Lab Data Lab Results 10/03/21 10/03/21 Range/Units 22:35 22:35 Urine HCG, Qual Not Detected (Not Detectd) Urine Opiates Screen Detected H (NotDetected) Ur Oxycodone Screen Not Detected (NotDetected) Urine Methadone Screen Detected H (NotDetected) Ur Propoxyphene Screen Not Detected (NotDetected) Ur Barbiturates Screen Not Detected (NotDetected) U Tricyclic Antidepress Not Detected (NotDetected) Ur Phencyclidine Scrn Not Detected (NotDetected) Ur Amphetamines Screen Detected H (NotDetected) U Methamphetamines Scrn Detected H (NotDetected) U Benzodiazepines Scrn Not Detected (NotDetected) Urine Cocaine Screen Detected H (NotDetected) U Marijuana (THC) Screen Detected H (NotDetected) Disposition Clinical Impression: History of bipolar disorder, History of major depression, Polysubstance dependence including opioid type drug, continuous use, Depression, Methamphetamine use, Overdose, Psychiatric care, Bipolar disorder, Cannabis use disorder, mild, abuse, Opiate abuse, continuous Disposition: ADMITTED IP TO THIS [facility] Condition: Fair Is patient prescribed a controlled substance at d/c from ED?: No Referrals: Ambika Mansfield MD [Primary Care Provider] - 1-2 days
[2021-10-04] MEDS ORDERED: SODIUM CHLORIDE 0.9% 1,000 ML IV SCH (01:00)
[2021-10-04] MEDS ORDERED: LORazepam 1 MG TAB PO STA (04:00)
[2021-10-04] MEDS ORDERED: HALOPERIDOL LACTATE 5 MG/ML 1 ML VIAL IM PRN (04:33)
[2021-10-04] MEDS ORDERED: MAGNESIUM HYDROXIDE 2,400 MG/10 ML CUP PO PRN (04:33)
[2021-10-04] MEDS ORDERED: MAG HYDROX/AL HYDROX/SIMETH 30 ML CUP PO PRN (04:33)
[2021-10-04] MEDS ORDERED: haloperidoL 5 MG TAB PO PRN (04:41)
[2021-10-04] MEDS ORDERED: LORazepam 2 MG/ML INJ IM PRN (04:42)
[2021-10-04 05:17] LABS: Appearance,Urine Turbid (Clear); Bacteria,Urine Many /hpf; Bilirubin,Urine Negative (Negative); Blood,Urine Negative (Negative); Color,Urine Light Brown; Glucose,Urine (UA) Negative (Negative); Ketones,Urine Negative (Negative); Leukocyte Esterase,Urine Moderate (Negative); Mucus,Urine Many /hpf; Nitrite,Urine Positive (Negative); PH, Urine 5.5 (5.0-8.0); Protein,Urine 2+ (Negative); Specific Gravity,Urine 1.028 (1.001-1.035); Squamous Epithelial Cell,Urine 8 /hpf (0-4); Urobilinogen,Urine <2.0 mg/dL (<2.0); WBC,Urine 10 /hpf (0-5)
[2021-10-04] MEDS: ACETAMINOPHEN TAB 325 MG TAB PO PRN (05:28)
--- NOTE | 2021-10-04 11:27 | CT ---
EXAMINATION TYPE: CT pelvis wo con DATE OF EXAM: 10/04/2021 COMPARISON: CT abdomen pelvis on 05/25/2022 HISTORY: Foreign body. CT DLP: 156.7 mGycm Automated exposure control for dose reduction was used. FINDINGS: There is bowel is no nondilated. The bladder is distended. Unremarkable uterus and adnexa. No suspicious osseous lesion. No radiopaque foreign body. IMPRESSION: UNREMARKABLE CT PELVIS. NO RADIOPAQUE FOREIGN BODY.
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
[2021-10-04] MEDS: LORazepam 1 MG TAB PO PRN (13:19)
[2021-10-04] MEDS: NICOTINE 14MG/24HR PATCH TRANSDERM SCH (13:19)
--- NOTE | 2021-10-04 14:41 | P.MDCNMH ---
History of Present Illness H&P Date: 10/04/21 Chief Complaint: Agitation Patient is a 26-year-old female with a known history of bipolar disorder, mood disorder, major depression, polysubstance abuse with heroine IVDU, methamphetamine use and vaping was brought to the hospital by her father for psychiatric evaluation. Patient was in the hospital about a week ago and was discharged on Tuesday. Patient states that she went to the court on Tuesday and was sent to rehab where she signed out of the rehab on Tuesday night. Patient states that she has been sober for the past 10 days. Otherwise patient denied any complaints of chest pain or shortness of breath. No nausea vomiting abdominal pain or diarrhea. Patient denied any complaints of abdominal pain. Does have some symptoms of dysuria. No fever no chills. Denied any lower abdominal pain. Urinalysis showed 10. 2+ protein and positive nitrite and moderate leukocyte esterase with elevated WBCs. UDS is positive for opiates, methadone, amphetamines, methamphetamines, cocaine and marijuana. Review of Systems Constitutional: Patient denies any fever or chills . No generalized weakness or weight loss. Abdomen: Patient denied nausea vomiting and diarrhea and abdominal pain. Cardiovascular: Patient denies any chest pain or short of breath no palpitations. Respiratory: patient denied any cough is from production. No shortness of breath Neurologic: Patient denied any numbness or tingling headache. Musculoskeletal: Patient denies any complaints of joint swelling or deformity. Skin: Negative Psychiatric: Negative Endocrine: No heat or cold intolerance. No recent weight gain. Genitourinary: No dysuria or hematuria. 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 She states she has depression and that it is stable at this time. Smoking Status: Vaper Past Alcohol Use History: None Reported Additional Past Alcohol Use History / Comment(s): Pt started smoking cigarettes in 2010 and quit in 2020. She vapes daily Past Drug Use History: Heroin - Past Family History Father Family Medical History: No Reported History Additional Family Medical History / Comment(s): Father is healthy Mother Family Medical History: No Reported History Additional Family Medical History / Comment(s): Mother is healthy Medications and Allergies Home Medications Medication Instructions Recorded Confirmed Type Famotidine [Pepcid] 20 mg PO BID tab 08/24/21 10/03/21 Rx Naloxone HCl [Narcan] 4 mg NASAL ONCE PRN #1 each 08/24/21 10/03/21 Rx Nicotine 14Mg/24Hr Patch [Habitrol] 1 patch TRANSDERM DAILY 30 Days 09/30/21 10/03/21 Rx patch QUEtiapine [SEROquel] 75 mg PO HS 30 Days tab 09/30/21 10/03/21 Rx lamoTRIgine [LaMICtal] 25 mg PO HS 30 Days tab 09/30/21 10/03/21 Rx traZODone HCL [Desyrel] 50 mg PO HS PRN 30 Days tab 09/30/21 10/03/21 Rx Allergies Allergy/AdvReac Type Severity Reaction Status Date / Time No Known Allergies Allergy Verified 10/03/21 21:52 Physical Exam Vitals: Vital Signs Temp Pulse Pulse Resp BP BP Pulse Ox 10/04/21 04:57 97.6 F 114 H 16 133/82 97 10/04/21 01:00 97.9 F 102 H 14 137/84 99 10/03/21 20:30 98.9 F 147 H 22 135/91 96 Intake and Output 10/03/21 10/04/21 10/04/21 22:59 06:59 14:59 Other: Weight 56.245 kg 56.245 kg 55.7 kg PHYSICAL EXAMINATION: Patient is lying in the bed comfortably, no acute distress, awake alert and oriented.. HEENT: Normocephalic. Neck is supple. Pupils reactive. Nostrils clear. Oral cavity is moist. Neck reveals no JVD, carotid bruits, or thyromegaly. CHEST EXAMINATION: Trachea is central. Symmetrical expansion. Lung hope clear to auscultation and percussion. CARDIAC: Normal S1, S2 with no gallops. No murmurs ABDOMEN: Soft. Bowel sounds normal. No organomegaly. No abdominal bruits. Extremities: reveal no edema. No clubbing or cyanosis Neurologically awake, alert, oriented x3 with well-coordinated movements. No focal deficits noted Skin: No rash or skin lesions. Psychiatric: Coperative. Nonsuicidal Musculoskeletal: No joint swelling or deformity. Normal range of motion. Cranial Nerve Examination - Cranial Nerves Cranial Nerve I- Olfactory: Intact Cranial Nerve II- Optic: Intact Cranial Nerve III- Oculomotor: Intact Cranial Nerve IV- Trochlear: Intact Cranial Nerve V- Trigeminal: Intact Cranial Nerve - Abducens: Intact Cranial Nerve VII- Facial: Intact Cranial Nerve VIII- Auditory: Intact Cranial Nerve IX- Glossopharyngeal: Intact Cranial Nerve X- Vagus: Intact Cranial Nerve XI- Accessory: Intact Cranial Nerve XII- Hypoglossal: Intact Results Labs: Abnormal Lab Results - Last 24 Hours (Table) 10/03/21 10/04/21 Range/Units 22:35 00:00 Urine Appearance Turbid H (Clear) Urine Protein 2+ H (Negative) Urine Nitrite Positive H (Negative) Ur Leukocyte Esterase Moderate H (Negative) Urine WBC 10 H (0-5) /hpf Ur Squamous Epith Cells 8 H (0-4) /hpf Urine Bacteria Many H (None) /hpf Urine Mucus Many H (None) /hpf Urine Opiates Screen Detected H (NotDetected) Urine Methadone Screen Detected H (NotDetected) Ur Amphetamines Screen Detected H (NotDetected) U Methamphetamines Scrn Detected H (NotDetected) Urine Cocaine Screen Detected H (NotDetected) U Marijuana (THC) Screen Detected H (NotDetected) Assessment and Plan Assessment: Acute urinary tract infection Polysubstance use with cocaine marijuana and opiates and IVDU heroin. Bipolar disorder with depression type. GERD Asthma not in exacerbation Hypothyroidism Anxiety/depression History of smoking and currently using vaper DVT prophylaxis early ambulation. Plan: Patient will be started on antibiotic in the form of nitrofurantoin and follow- up urine culture report. Continue with current psychiatric medications and management. Monitor for withdrawal symptoms. Patient was counseled extensively for drug use and IVDU. Will follow closely and further recommendations based on clinical course. Follow-up final urine culture report Thank you for your consult. Time with Patient: Greater than 30
[2021-10-04] MEDS: NITROFURANTOIN MONOHYD/M-CRYST 100 MG CAP PO SCH ×2 (18:01→20:27)
[2021-10-04] MEDS: lamoTRIgine 25 MG TAB PO SCH (20:27)
[2021-10-04] MEDS: QUEtiapine 25 MG TAB PO SCH (20:28)
[2021-10-05] MEDS: NITROFURANTOIN MONOHYD/M-CRYST 100 MG CAP PO SCH ×2 (08:33→20:14)
[2021-10-05] MEDS: NICOTINE 14MG/24HR PATCH TRANSDERM SCH ×2 (08:33→13:46)
[2021-10-05] MEDS: ACETAMINOPHEN TAB 325 MG TAB PO PRN (13:45)
[2021-10-05] MEDS ORDERED: IBUPROFEN 600 MG TAB PO PRN (13:45)
[2021-10-05] MEDS: LORazepam 1 MG TAB PO PRN (15:23)
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
[2021-10-05] MEDS: QUEtiapine 25 MG TAB PO SCH (20:13)
[2021-10-05] MEDS: lamoTRIgine 25 MG TAB PO SCH (20:13)
[2021-10-05] MEDS: traZODone HCL 50 MG TAB PO PRN (20:32)
[2021-10-06] MEDS: NICOTINE 14MG/24HR PATCH TRANSDERM SCH (09:47)
[2021-10-06] MEDS: NITROFURANTOIN MONOHYD/M-CRYST 100 MG CAP PO SCH ×2 (09:47→20:45)
--- NOTE | 2021-10-06 10:15 | P.PN ---
Progress Note - Text Progress Note Date: 10/06/21 Interval History: Patient was seen resting in bed and was directable and agreeable to speak with the administrative underwriter in her room. Currently, the patient is not reporting any significant issues regarding her mood. She'll never responses provider that she "made a big mistake by leaving rehab." She is currently not reporting any suicidal or homicidal ideation, intention, and/or plan. She is not reporting any auditory or visual hallucinations. She is denying any paranoia or other delusions. The patient expresses a strong desire to go back to rehabilitation. She was informed that she is under substance use court order and that any violation of this can result in longterm time. Mental Status Exam: General Appearance: Patient appears to be stated age is alert, directable, and cooperative. Behavior: Patient is calmly seated without any agitated behavior. Speech: Patient's speech is fluent and nonpressured. Mood/Affect: Mood is improving mildly, affect is congruent and euthymic Suicidality/Homicidality: Patient denies having any suicidal or homicidal ideation intent or plan. Perceptions: Patient denies any visual hallucinations and denies any auditory hallucinations Though content/process: There is no evidence of any delusional thought content and thought process is linear and goal-directed. Memory and concentration: AOX3, grossly intact for the purposes of this session Judgment and insight: Improving mildly Vital Signs Temp 97.6 F 10/04/21 04:57 Pulse 114 H 10/04/21 04:57 Resp 16 10/04/21 04:57 BP 133/82 10/04/21 04:57 Pulse Ox 97 10/04/21 04:57 Assessment Bipolar disorder, unspecified Opiate use disorder Methamphetamine use disorder Marijuana use disorder Plan: -Patient continues to meet criteria for inpatient psychiatric admission for symptom stabilization and safety. A demand for court hearing is filed as well as substance order request. She is scheduled for court tuesday. -Medications: Continue trazodone 50 mg by mouth at bedtime when necessary for insomnia Continue Seroquel 75 mg by mouth at bedtime for mood stabilization Increase Lamictal to 50 mg by mouth at bedtime for mood stabilization -When necessary Haldol for agitation/aggression. -NRT - nicotine patch -SW on board for discharge planning. Encouraged the patient to participate in milieu.
[2021-10-06] MEDS ORDERED: cloNIDine HCL 0.1 MG TAB PO PRN (14:18)
[2021-10-06] MEDS: LORazepam 1 MG TAB PO PRN (19:22)
[2021-10-06] MEDS: lamoTRIgine 25 MG TAB PO SCH (20:44)
[2021-10-06] MEDS: QUEtiapine 25 MG TAB PO SCH (20:45)
[2021-10-06] MEDS: traZODone HCL 50 MG TAB PO PRN (20:46)
[2021-10-07] MEDS: NITROFURANTOIN MONOHYD/M-CRYST 100 MG CAP PO SCH ×2 (09:11→20:49)
[2021-10-07] MEDS: NICOTINE 14MG/24HR PATCH TRANSDERM SCH (09:11)
--- NOTE | 2021-10-07 11:01 | P.PN ---
Progress Note - Text Progress Note Date: 10/07/21 Interval History: Patient was seen resting in bed and was directable and agreeable to speak with the process description writer in her room. Currently, the patient is not reporting any depression, bipolar symptoms, or psychosis. She is reporting no suicidal or homicidal ideation, intention, and/or plan. She is denying any auditory or visual hallucinations. She reports no paranoia or other delusions. The patient expresses elevated anxiety which she attributes to her fear of being off drugs in the process it takes to become sober. She is otherwise not reporting any significant issues regarding her sleep or her appetite. She has been in adherent with her medications and is not endorsing any significant side effects at this time. Mental Status Exam: General Appearance: Patient appears to be stated age is alert, directable, and cooperative. Behavior: Patient is calmly seated without any agitated behavior. Speech: Patient's speech is fluent and nonpressured. Mood/Affect: Mood is "doing okay," affect is congruent and euthymic Suicidality/Homicidality: Patient denies having any suicidal or homicidal ideation intent or plan. Perceptions: Patient denies any visual hallucinations and denies any auditory hallucinations Though content/process: There is no evidence of any delusional thought content and thought process is linear and goal-directed. Memory and concentration: AOX3, grossly intact for the purposes of this session Judgment and insight: Improving mildly Vital Signs Temp 97.1 F L 10/07/21 08:38 Pulse 83 10/07/21 08:38 Resp 14 10/07/21 08:38 BP 89/46 10/07/21 08:38 Pulse Ox 97 10/07/21 08:38 Assessment Bipolar disorder, unspecified Opiate use disorder Methamphetamine use disorder Marijuana use disorder Plan: -Patient continues to meet criteria for inpatient psychiatric admission for symptom stabilization and safety. The patient is scheduled for [facility] intake and rehab intake this Tuesday. -Medications: Continue trazodone 50 mg by mouth at bedtime when necessary for insomnia Increase Seroquel to 100 mg by mouth at bedtime for mood stabilization Continue Lamictal 50 mg by mouth at bedtime for mood stabilization -When necessary Haldol for agitation/aggression. -NRT - nicotine patch -SW on board for discharge planning. Encouraged the patient to participate in milieu.
[2021-10-07] MEDS: LORazepam 1 MG TAB PO PRN (13:38)
[2021-10-07 13:52] VITALS: RESP 16
[2021-10-07] MEDS: traZODone HCL 50 MG TAB PO PRN (20:48)
[2021-10-07] MEDS: lamoTRIgine 25 MG TAB PO SCH (20:48)
[2021-10-07] MEDS: QUEtiapine 100 MG TAB PO SCH (20:49)
[2021-10-08] MEDS: NICOTINE 14MG/24HR PATCH TRANSDERM SCH (08:40)
[2021-10-08] MEDS: NITROFURANTOIN MONOHYD/M-CRYST 100 MG CAP PO SCH ×2 (08:40→20:38)
--- NOTE | 2021-10-08 11:51 | P.PN ---
Progress Note - Text Progress Note Date: 10/08/21 Interval History: Patient was seen resting in bed and was directable and agreeable to speak with the customs entry writer in the office. Patient continues to express anxiety about going to rehab and wants to know that she is able to go to rehab immediately after discharge. She is also inquiring about who will be the one to drive her to rehab. She is currently not reporting any suicidal or homicidal ideation, intention, and/or plan. She is not reporting any auditory or visual hallucinations. She denies any paranoia or other delusions. The patient has been adherent to medications and is not endorsing any significant side effects this time. Mental Status Exam: General Appearance: Patient appears to be stated age is alert, directable, and cooperative. Behavior: Patient is calmly seated without any agitated behavior. Speech: Patient's speech is fluent and nonpressured. Mood/Affect: Mood is "a little anxious," affect is congruent and euthymic Suicidality/Homicidality: Patient denies having any suicidal or homicidal ideation intent or plan. Perceptions: Patient denies any visual hallucinations and denies any auditory hallucinations Though content/process: There is no evidence of any delusional thought content and thought process is linear and goal-directed. Memory and concentration: AOX3, grossly intact for the purposes of this session Judgment and insight: Improving mildly Vital Signs Temp 98.4 F 10/08/21 08:58 Pulse 71 10/08/21 08:58 Resp 16 10/08/21 08:58 BP 98/53 10/08/21 08:58 Pulse Ox 97 10/07/21 08:38 Assessment Bipolar disorder, unspecified Opiate use disorder Methamphetamine use disorder Marijuana use disorder Plan: -Patient continues to meet criteria for inpatient psychiatric admission for symptom stabilization and safety. The patient is scheduled for [facility] intake and rehab intake this Tuesday. -Medications: Continue trazodone 50 mg by mouth at bedtime when necessary for insomnia Continue Seroquel 100 mg by mouth at bedtime for mood stabilization Continue Lamictal 50 mg by mouth at bedtime for mood stabilization -When necessary Haldol for agitation/aggression. -NRT - nicotine patch -SW on board for discharge planning. Encouraged the patient to participate in milieu.
[2021-10-08] MEDS: LORazepam 1 MG TAB PO PRN (11:53)
[2021-10-08] MEDS: traZODone HCL 50 MG TAB PO PRN (20:38)
[2021-10-08] MEDS: QUEtiapine 100 MG TAB PO SCH (20:39)
[2021-10-08] MEDS: lamoTRIgine 25 MG TAB PO SCH (20:39)
[2021-10-08] MEDS ORDERED: PRAZOSIN 1 MG CAP PO SCH (21:00)
[2021-10-09 08:59] VITALS: BP 111/59; PULSE 115; TEMP 97.9
[2021-10-09] MEDS: NITROFURANTOIN MONOHYD/M-CRYST 100 MG CAP PO SCH (09:00)
[2021-10-09] MEDS: NICOTINE 14MG/24HR PATCH TRANSDERM SCH (09:00)
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
== END 2021-10-09 12:10 | disposition home or self-care (01) | DRG 885 ==
LOC: EC 20:27 → 3MHU 10-04 04:26
PROVIDERS: ADMIT Psychiatry & Neurology Psychiatry; ATTEND Psychiatry & Neurology Psychiatry
DX: F31.81 Bipolar II disorder (principal); R45.851 Suicidal ideations; N39.0 Urinary tract infection, site not specified; F11.10 Opioid abuse, uncomplicated; F15.10 Other stimulant abuse, uncomplicated; E03.9 Hypothyroidism, unspecified; Z20.822 Contact with and (suspected) exposure to COVID-19; F12.90 Cannabis use, unspecified, uncomplicated; G47.00 Insomnia, unspecified; J45.909 Unspecified asthma, uncomplicated; K21.9 Gastro-esophageal reflux disease without esophagitis; F90.9 Attention-deficit hyperactivity disorder, unspecified type; F43.10 Post-traumatic stress disorder, unspecified; F17.290 Nicotine dependence, other tobacco product, uncomplicated; Z71.6 Tobacco abuse counseling; Z79.899 Other long term (current) drug therapy; Z91.410 Personal history of adult physical and sexual abuse; Z86.19 Personal history of other infectious and parasitic diseases; Z87.42 Personal history of other diseases of the female genital tract; Z71.51 Drug abuse counseling and surveillance of drug abuser; Z71.41 Alcohol abuse counseling and surveillance of alcoholic
CPT/HCPCS: 72192; 74018; 80175; 80306; 81001; 81025; 82075; 87635; 99285